=== PATIENT | female | born 1980 | race Caucasian/White ===

== ENCOUNTER → 2020-03-08 14:31 | Outpatient (BNVA) | payer OTHER, SELFPAY | PROVIDERS: PCP Internal Medicine Endocrinology, Diabetes & Metabolism; Referring Provider Internal Medicine Endocrinology, Diabetes & Metabolism; Visit Provider Advanced Practice Midwife | DX: Z76.89 Persons encountering health services in other specified circumstances (principal) ==

== ENCOUNTER 2020-07-13 15:17 | Outpatient (REF) | payer OTHER, SELFPAY ==
[2020-07-17 06:37] LABS: HPV mRNA E6/E7 rflx Not Detected (Not Detected)
== END 2020-07-13 15:18 | disposition home or self-care (01) ==
LOC: HO.LAB 15:17
PROVIDERS: PCP Internal Medicine Endocrinology, Diabetes & Metabolism; Visit Provider Advanced Practice Midwife
DX: Z01.419 Encounter for gynecological examination (general) (routine) without abnormal findings (principal); Z97.5 Presence of (intrauterine) contraceptive device
CPT/HCPCS: 36415; 87624; 88141; 88142

== ENCOUNTER 2020-08-23 15:18 | Outpatient (REF) | payer OTHER, SELFPAY ==
--- NOTE | ~2020-08-23 | MM_ITS ---
EXAMINATION: MM SCREENING DIGITAL BREAST TOMOSYNTHESIS, BILATERAL CLINICAL INFORMATION: Screening. Asymptomatic. No prior breast imaging. Age 40. No known family history breast cancer. The lifetime risk of breast cancer based on the Tyrer-Cuzick Model is 11%. COMPARISON: None (current study represents initial baseline exam). TECHNIQUE: Digital breast tomosynthesis is performed in both the craniocaudal and mediolateral oblique views along with computer-aided detection (CAD). Synthesized 2D images are generated from the tomosynthesis. FINDINGS: There are scattered areas of fibroglandular density (ACR BI-RADS breast composition Category b). There are no significant masses, abnormal calcifications, or other abnormalities. The skin contours are smooth. MM/MM tomosynthesis screening BI IMPRESSION: No mammographic evidence of malignancy. ASSESSMENT: BI-RADS 1: Negative RECOMMENDATION: Routine annual mammography screening. This patient's information was entered into a reminder system with a target due date for their next mammogram.
== END 2020-08-23 15:19 | disposition home or self-care (01) ==
LOC: HO.MAMMO 15:18
PROVIDERS: Visit Provider Advanced Practice Midwife
DX: Z12.31 Encounter for screening mammogram for malignant neoplasm of breast (principal)
CPT/HCPCS: 77063; 77067

== ENCOUNTER → 2021-08-30 15:19 | Outpatient (BNVA) | payer OTHER, SELFPAY | PROVIDERS: Visit Provider Advanced Practice Midwife | DX: Z13.89 Encounter for screening for other disorder (principal) ==

== ENCOUNTER 2021-09-14 15:18 | Outpatient (REF) | payer OTHER, SELFPAY ==
--- NOTE | ~2021-09-14 | MM_ITS ---
EXAMINATION: MM SCREENING DIGITAL BREAST TOMOSYNTHESIS, BILATERAL CLINICAL INFORMATION: Screening. Asymptomatic. The lifetime risk of breast cancer based on the Tyrer-Cuzick Model is 11%. COMPARISON: Mammography: August 23, 2020 TECHNIQUE: Digital breast tomosynthesis is performed in both the craniocaudal and mediolateral oblique views along with computer-aided detection (CAD). Synthesized 2D images are generated from the tomosynthesis. FINDINGS: There are scattered areas of fibroglandular density (ACR BI-RADS breast composition Category b). There are no significant masses, abnormal calcifications, or other abnormalities. MM/MM tomosynthesis screening BI IMPRESSION: There are no significant changes from prior study. ASSESSMENT: BI-RADS 1: Negative RECOMMENDATION: Routine annual mammography screening. This patient's information was entered into a reminder system with a target due date for their next mammogram.
== END 2021-09-14 15:19 | disposition home or self-care (01) ==
LOC: HO.MAMMO 15:18
PROVIDERS: Visit Provider Physician Assistant Medical
DX: Z12.31 Encounter for screening mammogram for malignant neoplasm of breast (principal)
CPT/HCPCS: 77063; 77067

== ENCOUNTER 2022-09-05 13:00 | Outpatient (REF) | payer BC, SELFPAY ==
[2022-09-09 01:09] LABS: HPV mRNA E6/E7 rflx Not Detected (Not Detected)
== END 2022-09-05 13:01 | disposition home or self-care (01) ==
LOC: HO.LNP 13:00
PROVIDERS: Visit Provider Advanced Practice Midwife
DX: Z01.419 Encounter for gynecological examination (general) (routine) without abnormal findings (principal)
CPT/HCPCS: 87624; 88142

== ENCOUNTER 2022-09-15 15:39 | Outpatient (REF) | payer BC, SELFPAY ==
--- NOTE | ~2022-09-15 | MM_ITS ---
EXAMINATION: MM SCREENING DIGITAL BREAST TOMOSYNTHESIS, BILATERAL CLINICAL INFORMATION: Screening. Asymptomatic. The lifetime risk of breast cancer based on the Tyrer-Cuzick Model is 10%. COMPARISON: Mammography: 09/14/2021, 08/23/2020 (baseline). TECHNIQUE: Digital breast tomosynthesis is performed in both the craniocaudal and mediolateral oblique views along with computer-aided detection (CAD). Synthesized 2D images are generated from the tomosynthesis. FINDINGS: There are scattered areas of fibroglandular density (ACR BI-RADS breast composition Category b). There are no significant masses, abnormal calcifications, or other abnormalities. Parenchymal pattern is similar to prior studies. There is no developing density or architectural abnormality. The axilla and skin contours are unremarkable. No significant changes. MM/MM tomosynthesis screening BI IMPRESSION: No mammographic evidence of malignancy. ASSESSMENT: BI-RADS 1: Negative RECOMMENDATION: Routine annual mammography screening. This patient's information was entered into a reminder system with a target due date for their next mammogram.
== END 2022-09-15 15:40 | disposition home or self-care (01) ==
LOC: HO.MAMMO 15:39
PROVIDERS: PCP Physician Assistant Medical; Visit Provider Physician Assistant Medical
DX: Z12.31 Encounter for screening mammogram for malignant neoplasm of breast (principal)
CPT/HCPCS: 77063; 77067

== ENCOUNTER 2023-09-19 15:40 | Outpatient (REF) | payer BC, SELFPAY ==
--- NOTE | ~2023-09-19 | MM_ITS ---
EXAMINATION: MM SCREENING DIGITAL BREAST TOMOSYNTHESIS, BILATERAL CLINICAL INFORMATION: Screening. Asymptomatic. COMPARISON: Mammography: 09/07/2022, 09/14/2021, 08/23/2020 (baseline). TECHNIQUE: Digital breast tomosynthesis is performed in both the craniocaudal and mediolateral oblique views along with computer-aided detection (CAD). Synthesized 2D images are generated from the tomosynthesis. FINDINGS: There are scattered areas of fibroglandular density (ACR BI-RADS breast composition Category b). There are no suspicious masses, suspicious grouped calcifications, or areas of architectural distortion in either breast. The parenchymal pattern is stable from prior exams. No skin or axillary abnormality. MM/MM tomosynthesis screening BI IMPRESSION: No mammographic evidence of malignancy. ASSESSMENT: BI-RADS BI-RADS 1 - Negative RECOMMENDATION: Routine annual mammography screening. 1 year F/U This examination should not preclude the clinical evaluation of a suspicious palpable abnormality. This patient's information was entered into a reminder system with a target due date for their next mammogram.
== END 2023-09-19 15:41 | disposition home or self-care (01) ==
LOC: HO.MAMMO 15:40
PROVIDERS: PCP Physician Assistant Medical; Visit Provider Physician Assistant Medical
DX: Z12.31 Encounter for screening mammogram for malignant neoplasm of breast (principal)
CPT/HCPCS: 77063; 77067

== ENCOUNTER → 2023-09-19 16:00 | Outpatient (BNV) | payer BC, SELFPAY | PROVIDERS: PCP Physician Assistant Medical; Visit Provider Radiology Diagnostic Radiology | DX: Z12.31 Encounter for screening mammogram for malignant neoplasm of breast (principal) | CPT/HCPCS: 77063; 77067 ==

== ENCOUNTER 2023-11-09 11:16 | Outpatient (REF) | payer BC, SELFPAY ==
[2023-11-13 10:44] LABS: HPV mRNA E6/E7 Not Detected (Not Detected)
== END 2023-11-09 11:17 | disposition home or self-care (01) ==
LOC: HO.LNP 11:16
PROVIDERS: PCP Physician Assistant Medical; Visit Provider Advanced Practice Midwife
DX: Z01.419 Encounter for gynecological examination (general) (routine) without abnormal findings (principal); Z11.51 Encounter for screening for human papillomavirus (HPV)
CPT/HCPCS: 87624; 88175

== ENCOUNTER 2023-11-09 11:16 | Outpatient (AMB) | payer BC, SELFPAY ==
--- NOTE | 2023-11-09 11:18 | A.OFFVIS_ITS ---
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 Doing well with no concerns. She tries to eat healthy and stays active with exercise. Mirena IUD user. Currently is sexually active. She denies vaginal itching and irritation. STI screening offered; she declined. Denies family history of breast, ovarian or colon cancer. Last pap smear -ASCUS negative HPV. Mammogram: 2023. 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 Sexually active: Yes Sexual orientation: Straight/Heterosexual Gender identity: Female Female Reproductive History Menstrual Age of Menarche: 12 control method: progestin IUCD Total pregnancies: 3 Full term: 3 Number of Living Children: 3 Date of last pap smear: 09/06/22 Date of Mammogram: 09/19/23 Review of Systems Const All systems reviewed & are unremarkable except as noted in HPI and below Reports as per HPI Eyes Reports no additional complaints ENT Reports no additional complaints Card Reports no additional complaints Resp Reports no additional complaints GI Reports as per HPI and Reports no additional complaints Reports as per HPI Musc Reports no additional complaints Skin/Breast Reports as per HPI Neuro Reports no additional complaints Psych Reports no additional complaints Endo Reports no additional complaints Alberto/Lymph Reports no additional complaints Aller/Immun Reports no additional complaints Physical Exam Vital Signs: Last Vital Signs BP 126/70 11/09/23 11:20 BMI result Body Mass Index 35.6 Const General: cooperative, healthy appearing, no acute distress, well developed and alert Orientation/consciousness: patient oriented x3 HEENT Head: Yes normal to inspection Eyes General: appearance normal, both eyes and all related structures Neck Neck: Yes normal visual inspection Thyroid: Thyroid normal Chest Chest palpation & inspection: normal inspection of the chest and other (no puckering, dimpling, peau de orange, retraction, discharge, masses) Breast/axilla inspection: normal inspection of the breasts Breast/axilla palpation: normal palpation of the breasts Resp Effort & Inspection: normal respiratory effort GI Inspection: Yes normal to inspection Palpation (GI): Soft to palpation Rectal Exam - Female: deferred General: Yes bladder normal to palpation External Female Exam: normal external appearance and normal appearance of the urethra Speculum Exam - Vagina: normal appearance of the vagina, normal palpation and normal vaginal discharge Speculum Exam - Cervix: normal appearance of the cervix, normal palpation and Other cervical findings present (IUD strings present at os, bled slightly with Pap) Bimanual exam- vagina & uterus: normal bimanual exam, normal palpation, uterine size normal, bladder normal to palpation, normal palpation and non-tender Bimanual Exam- Adnexa, other: no masses Skin General skin exam: no rashes or lesions noted Rashes: no rashes Neuro General: patient oriented x3 Cognition (Neuro): normal cognition Extrem General: Yes normal to inspection Psych Attitude: cooperative Thought process: Normal thought process present Assessment & Plan Assessment & Plan (1) Encounter for well woman exam with routine gynecological exam: Code(s): Z01.419 - Encounter for gynecological examination (general) (routine) without abnormal findings Category: Medical (2) History of abnormal cervical Pap smear: Code(s): Z87.42 - Personal history of other diseases of the female genital tract Plan Discussed: Current recommendations for pap smears per ASCCP guidelines. Breast awareness and periodic breast exams. Maintain a healthy lifestyle including a well balanced diet and routine exercise. Mammogram yearly. Colonoscopy >45, or at risk sooner. Patient verbalizes understanding and agrees to the plan of care. She was given opportunity to ask questions and all questions were answered to the best of my ability. RTO in one year for annual associate pastor examination. This note is constructed using voice recognition software. While every effort has been made to ensure accuracy, front desk agent errors may have been included. Coding Level of Care Code Est Pt Prev Care 40-64y(96572) Diagnoses Encounter for well woman exam with routine gynecological exam Z01.419 History of abnormal cervical Pap smear Z87.42
[2023-11-09 11:20] VITALS: BP 126/70; BMI 35.6
== END 2023-11-09 11:49 | disposition home or self-care (01) ==
PROVIDERS: PCP Physician Assistant Medical; Visit Provider Advanced Practice Midwife
DX: Z01.419 Encounter for gynecological examination (general) (routine) without abnormal findings (principal); Z87.42 Personal history of other diseases of the female genital tract
CPT/HCPCS: 99396

== ENCOUNTER 2023-12-17 15:22 | Emergency (ER) | payer BC, SELFPAY ==
--- NOTE | ~2023-12-17 | XR_ITS ---
EXAMINATION: PORTABLE CHEST 1 VIEW CLINICAL INFORMATION: CP. COMPARISON: No recent pertinent prior studies are available for comparison. TECHNIQUE: Portable frontal view of the chest was obtained. FINDINGS: The lungs are well expanded. No focal infiltrate, effusion, edema, or pneumothorax. Cardiac and mediastinal silhouettes are within normal limits for technique. No acute bony abnormality seen. XR/XR chest 1V IMPRESSION: No evidence of acute disease.
[2023-12-17 15:35] VITALS: BP 123/77; BP 138/78; PULSE 71; PULSE 78; RESP 20; TEMP 37.2; O2SAT 97; BMI 36.0
--- NOTE | 2023-12-17 15:35 | ECG_ITS ---
Test Reason : cp Blood Pressure : / mmHG Vent. Rate : 074 BPM Atrial Rate : 074 BPM P-R Int : 132 ms QRS Dur : 082 ms QT Int : 398 ms P-R-T Axes : 023 056 033 degrees QTc Int : 441 ms Normal sinus rhythm Normal ECG No previous ECGs available Referred By: Generic ED Physician Electronically Signed By:Wes Campos
--- NOTE | 2023-12-17 15:54 | ED.CHESTPAIN ---
HPI - Chest Pain General Chief Complaint: Chest Pain Stated Complaint: CP Time Seen by Provider: 12/17/23 15:45 Source: patient and EMS Mode of arrival: EMS Limitations: no limitations History of Present Illness ED Provider: DR. Lai HPI narrative: 43-year-old female who is otherwise healthy brought in by ambulance for evaluation of left-sided chest pain that started since 09:00, pain feels like pressure on the left side of the chest and upper left back, radiates to the left on, pain is constant since it started waxes and wanes with no clear factors to aggravate or relief it. No other associated symptoms no nausea, no vomiting, no SOB, no weakness, no numbness. No recent travel, no prolonged immobilization, no lower extremity swelling or tenderness, no history of contraceptive pills or hormonal therapy, no history of PE or DVT. No history of smoking cigarettes or drug abuse, drinks alcohol occasionally. Related Data Home Medications ?Medication ?Instructions ?Recorded ?Confirmed bupropion HCl 150 mg tablet,12 hr mg PO 03/08/20 sustained-release cetirizine 10 mg tablet (Zyrtec) 10 mg PO DAILY 03/08/20 escitalopram oxalate 20 mg tablet 20 mg PO DAILY 03/08/20 levonorgestrel 21 mcg/24 hr (up to 0 device vaginal ONCE 03/08/20 8 years) 52 mg intrauterine device Allergies Allergy/AdvReac Type Severity Reaction Status Date / Time No Known Allergies Allergy Verified 12/17/23 15:37 [No Known Allergies*] Review of Systems Review of Systems: All other systems are reviewed and are negative Constitutional: Reports as per HPI and Reports no additional constitutional complaints Eyes: Reports as per HPI and Reports no additional eye complaints Reports system reviewed and no additional complaints, except as documented Cardiovascular: Reports as per HPI and Reports no additional cardiovascular complaints Respiratory: Reports as per HPI and Reports no additional respiratory complaints Gastrointestinal: Reports as per HPI and Reports no additional gastrointestinal complaints Genitourinary: Reports no additional female genitourinary complaints Musculoskeletal: Reports no additional musculoskeletal complaints Skin/Breast: Reports system reviewed and no additional complaints, except as docu Psychiatric: Reports no additional psychiatric complaints Endocrine: Reports no additional endocrine complaints Hematologic/Lymphatic: Reports no additional hematologic/lymphatic complaints Allergic/Immunologic: Reports no additional allergic/immunologic complaints Reports system reviewed and no additional complaints, except as documented and Reports Abnormal speech present [facility] Past Medical History Medical History Hx of abnormal cervical Pap smear Irritability Surgical History Hx of cholecystectomy Social History Social History Household Members: Spouse and Children Housing: House Alcohol intake: current Alcohol intake frequency: a few times a week Patient Tobacco Use Status: Never used Tobacco Advance Directives: No Advance Directives Information Provided: No Do you have a plan to hurt others: No Plan Current occupational status: employed 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 Blood pressure elevated. Heart rate normal. Respiratory rate normal. Temperature normal. Oxygen saturation normal. Appearance: Alert. Oriented X3. No acute distress. Head: Normal external exam. Normocephalic. Atraumatic. No South signs noted. No raccoon eyes noted Eyes: PERRLA. EOMI. Conjunctiva and sclera normal. Eyelids normal. ENT: TM's Normal. Pharynx normal. Uvula midline. Moist mucous membranes. No trismus noted. No drooling noted. No muffled voice noted. Neck: Normal inspection. Neck supple. FROM. No adenopathy. Thyroid Normal. No meningeal signs. No neck mass noted. CVS: Normal heart rate and rhythm. Heart sound normal. No murmurs noted. Pulses normal throughout. Respiratory: No respiratory distress. Painless inspiration. Breath sounds normal. No wheezes/rales/rhonchi noted. Chest nontender. No accessory muscle usage noted or decreased air movement noted. Abdomen: Soft and nontender. Bowel sounds normal in all 4 quadrants. No distention noted. No organomegaly noted. No visible injury noted. Back: No CVA tenderness. Full range of motion noted. Skin: Skin warm and dry. Normal skin color. Normal skin turgor. No rashes/lesions/lacerations noted. Extremities: No lower extremity edema. Extremities exhibit normal range of motion. Extremities nontender. Neuro: Oriented X 3. Cranial nerve exam: II-XII are grossly intact No motor deficit. No sensory deficit. Reflexes normal. Course Reevaluation(s) Reevaluation #1: 43-year-old female otherwise healthy presented with atypical left-sided chest pain. patient presentation is not consistent with ACS with negative to troponin and unremarkable EKG. Patient also has no risk for pulmonary embolism with a negative D-dimer. Negative chest x-ray for acute intrathoracic pathology. Time: 19:00 Medications Administered Discontinued Medications Generic Name Dose Route Start Last Admin Trade Name Freq PRN Reason Stop Dose Admin Acetaminophen 650 mg 12/17/23 15:58 12/17/23 16:02 Acetaminophen 325 Mg Tablet PO 12/17/23 15:59 650 mg ONCE ONE Administration Medical Decision Making Differential Diagnosis Differential Diagnoses: The differential diagnosis associated with the presentation includes ( ACS, pulmonary embolism, pneumonia, pneumothorax, pleural effusion, electrolyte derangement, severe anemia, chest wall muscular pain, costochondritis.) Admission/Observation Consideration of admission/observation: Escalation of care including admission/observation considered Lab Data MDM Lab Attestation statement: I reviewed the patient's lab results. 12/17/23 16:07 12/17/23 16:07 Labs: Lab Results 12/17/23 Range/Units 16:07 WBC 8.9 (4.8-10.8) X10*3/uL RBC 3.69 L (4.20-5.50) X10*6/uL Hgb 11.4 L (12.0-16.0) g/dl Hct 32.6 L (37.0-47.0) % MCV 88.3 (80.0-98.0) fL MCH 30.9 (27.0-33.0) pg MCHC 35.0 (31.0-35.0) g/dl RDW 14.1 (11.0-16.0) % Plt Count 192 (160-400) X10*3/uL MPV 9.1 L (9.4-12.3) fL Immature Gran % (Auto) 0.6 H (0.0-0.4) % Neut % (Auto) 63.2 (45-73) % Lymph % (Auto) 24.4 (20-40) % [place] % (Auto) 7.6 (2-11) % Eos % (Auto) 3.5 (0-4) % Baso % (Auto) 0.7 (0-2) % Lymph # (Auto) 2.2 (1.2-4.9) X10*3/uL [place] # (Auto) 0.7 (0.1-1.2) X10*3/uL Eos # (Auto) 0.3 (0.0-0.4) X10*3/uL Baso # (Auto) 0.1 (0.0-0.2) X10*3/uL Abs Immat Gran (auto) 0.05 H (0.00-0.03) X10*3/uL Absolute Neuts (auto) 5.7 (2.0-8.3) x10*3/uL Absolute Nucleated RBC 0.000 (0.0-0.012) X10*3/uL Nucleated RBC % (auto) 0.0 (0.0-0.2) /100WBC D-Dimer High Sensitivty 166 NG/ML Sodium 139 (135-145) mmol/L Potassium 3.7 (3.3-5.1) mmol/L Chloride 106 (96-108) mmol/L Carbon Dioxide 25 (22-29) mmol/L Anion Gap 12 (12-20) BUN 11 (9-16) mg/dL Creatinine 1.05 (0.5-1.4) mg/dL Estim Creat Clear Calc 82.9 Estimated GFR 57 Random Glucose 90 (60-115) mg/dL Calcium 9.2 (8.4-10.2) mg/dL Magnesium 2.0 (1.6-2.6) mg/dL Total Bilirubin 0.3 (0.0-1.0) mg/dL AST 28 (5-31) U/L ALT 54 H (0-31) U/L Alkaline Phosphatase 38 L (39-117) U/L Troponin I High Sens < 2.7 (<3.5-17.0) ng/L Total Protein 7.1 (6.5-8.0) g/dL Albumin 4.1 (3.5-5.0) g/dL Independent Interpretation I performed an independent interpretation of an: EKG ( normal sinus rhythm at 74 beats per minutes, normal intervals, normal axis deviation, no ST-T changes, no old EKG to compare.) and Plain X-Ray ( Chest: No acute intrathoracic pathology.) Radiology Impression Discussion of test interpretation with radiology: I have reviewed the radiologist's reading. Discharge Plan Discharge Clinical Impression: Atypical chest pain Patient Disposition: Home, Self-Care Instructions: Chest Pain (ED) Prescriptions: No Action escitalopram oxalate 20 mg tablet 20 mg PO DAILY bupropion HCl 150 mg tablet sustained-release 12 hr PO Mirena 20 mcg/24 hours (5 yrs) 52 mg intrauterine device 0 device vaginal ONCE cetirizine [Zyrtec] 10 mg tablet 10 mg PO DAILY Referrals: Wes Campos MD [Physician] - Anderson Noble PA [Primary Care Provider] - Print Language: [place] Islander
[2023-12-17] MEDS: Acetaminophen 325 MG TABLET 650 MG PO (16:02)
[2023-12-17 16:13] LABS: MANUAL DIFF FLAG NO
[2023-12-17 16:14] LABS: Basophils Absolute Auto 0.1 X10*3/uL (0.0-0.2); Basophils Percent Auto 0.7 % (0-2); Eosinophils Absolute Auto 0.3 X10*3/uL (0.0-0.4); Eosinophils Percent Auto 3.5 % (0-4); Hematocrit 32.6 % (37.0-47.0); Hemoglobin 11.4 g/dl (12.0-16.0); Imm Gran Abs Auto 0.05 X10*3/uL (0.00-0.03); Imm Gran Pct Auto 0.6 % (0.0-0.4); Lymphocytes Absolute Auto 2.2 X10*3/uL (1.2-4.9); Lymphocytes Percent Auto 24.4 % (20-40); Mean Corpuscular Hemoglobin 30.9 pg (27.0-33.0); Mean Corpuscular Volume 88.3 fL (80.0-98.0); Mean Platelet Volume 9.1 fL (9.4-12.3); Monocytes Absolute Auto 0.7 X10*3/uL (0.1-1.2); Monocytes Percent Auto 7.6 % (2-11); Neutrophils Absolute Auto 5.7 x10*3/uL (2.0-8.3); Neutrophils Percent Auto 63.2 % (45-73); Platelet Count 192 X10*3/uL (160-400); Red Blood Count 3.69 X10*6/uL (4.20-5.50); Red Cell Distribution Width 14.1 % (11.0-16.0); White Blood Count 8.9 X10*3/uL (4.8-10.8)
[2023-12-17 16:23] LABS: D Dimer High Sensitivity 166 NG/ML
[2023-12-17 16:29] LABS: Alanine Aminotransferase 54 U/L (0-31); Albumin Level 4.1 g/dL (3.5-5.0); Alkaline Phosphatase 38 U/L (39-117); Anion Gap 12 (12-20); Aspartate Amino Transferase 28 U/L (5-31); Bilirubin Total 0.3 mg/dL (0.0-1.0); Blood Urea Nitrogen 11 mg/dL (9-16); Calcium 9.2 mg/dL (8.4-10.2); Carbon Dioxide 25 mmol/L (22-29); Chloride 106 mmol/L (96-108); Creatinine Clr Calc Pharmacy 82.9; Estimated Glomerular Filt Rate 57; Glucose Random 90 mg/dL (60-115); Potassium 3.7 mmol/L (3.3-5.1); Sodium 139 mmol/L (135-145); Total Protein 7.1 g/dL (6.5-8.0)
[2023-12-17 16:36] LABS: Troponin-I High Sensitivity < 2.7 ng/L (<3.5-17.0)
[2023-12-17 18:42] VITALS: BP 121/77; PULSE 75; RESP 14; O2SAT 96
[2023-12-17 19:41] LABS: Troponin-I High Sensitivity < 2.7 ng/L (<3.5-17.0)
[2023-12-17 20:53] VITALS: BP 121/77; PULSE 75; RESP 14; TEMP 37.2; O2SAT 96
== END 2023-12-17 21:02 | disposition home or self-care (01) ==
PROVIDERS: Emergency Provider Emergency Medicine; PCP Physician Assistant Medical
DX: R07.89 Other chest pain (principal); Z79.899 Other long term (current) drug therapy
CPT/HCPCS: 36415; 71045; 80053; 83735; 84484; 85025; 85379; 93005; 99283; 99285

== ENCOUNTER → 2023-12-17 15:35 | Outpatient (BNV) | payer BC, SELFPAY | PROVIDERS: Emergency Provider Emergency Medicine; PCP Physician Assistant Medical; Visit Provider Internal Medicine Cardiovascular Disease | DX: R07.9 Chest pain, unspecified (principal) | CPT/HCPCS: 93010 ==

== ENCOUNTER 2024-09-25 15:32 | Outpatient (REF) | payer BC, SELFPAY ==
--- OUTSIDE RECORDS SUMMARY | 2024-09-25 16:03 | XMS_ITS | Clinical Summary ---
Author Organization [facility] Address [address] [place] [id number] Phone Care Team Providers Care Radiological Health Specialist Name Role Phone Anderson Noble Primary Care Provider [phone] Medications buPROPion XL (WELLBUTRIN XL) 300 mg 24 hr tablet TAKE 1 TABLET BY MOUTH EVERY DAY IN THE MORNING 90 tablet 1 07/28/2024 Active Encounters Date Type Department Care Team Description 09/03/2024 Telephone Adult Medicine [address] [phone] Anderson Noble PA Sore Throat 07/24/2024 Telephone Adult Medicine [address] [phone] Makenna Trimble MA Referral from Last 3 Months Surgical History Surgery Date Site/Laterality Comments CHOLECYSTECTOMY 04/09/13 PROCEDURE: LAPAROSCOPIC CHOLECYSTECT COLONOSCOPY 11/23/2005 PROCEDURE: HISTORICAL COLONOSCOPY; COMMENT: Dr Muñoz - normal to terminal ileum Medical History Medical History Date Comments Allergic rhinitis, cause unspecified 11/03/2005 DX:Allergic rhinitis, cause unspecified IBS (irritable bowel syndrome) D X:IBS (irritable bowel syndrome) Family History Medical History Relation Name Comments Diabetes Father htn Stroke Father age 50, htn and diabetes Asthma Mother depression Other: blood cancer Mother's side uncle a ge 44 Breast cancer Neg Hx Colon cancer Neg Hx Ovarian cancer Neg Hx Relation Name Status Comments Father Alive Mother Alive Mother's side Social History Tobacco Use Types Packs/Day Years Used Date Smoking Tobacco: Never Smokeless Tobacco: Never Alcohol Use Standard Drinks/Week Comments No 0 (1 standard drink = 0.6 oz pur e alcohol) Comments Unknown Sex and Gender Information Value Date Recorded Sex Assigned at Not on file Legal Sex Female 10:45 AM EST Gender Identity Not on file Sexual Orientation Not on file Obstetrics History Last Filed Vital Signs Vital Sign Reading Time Taken Comments Blood Pressure 130/60 11/26/2023 9:38 AM EDT Pulse 75 11/26/2023 9:38 AM EDT Temperature - - Respiratory Rate - - Oxygen Saturation - - Inhaled Oxygen Concentration - - Weight 99.3 kg (219 lb) 02/12/2024 3:28 PM EDT Height 165.1 cm (5' 5 ) 02/12/2024 3:28 PM EDT Body Mass Index 36.44 02/12/2024 3:28 PM EDT Plan of Treatment Health Maintenance Due Date Last Done Comments Pneumococcal Vaccine: Pediatrics (0 to 5 Years) and At-Risk Patients (6 to 64 Years) (1 of 2 - PCV) 1999 Cervical Cancer Screening: Pap Smear 2001 COVID-19 Vaccine (3 - Moderna risk series) 10/02/2020 09/04/2020, 08/07/2020 Depression Screening 04/29/2022 HIV Screening 04/29/2022 Hepatitis C Screening 04/29/2022 Social Influencers of Health Screening 04/29/2022 Influenza Vaccine (Season Ended) 2025 03/11/2021, 01/30/2018, 01/31/2017, Additional history exists Breast Cancer Screening 09/18/2025 09/19/2023 DTaP,Tdap,and Td Vaccines (2 - Td or Tdap) 03/07/2028 03/07/2018 Cholesterol Screening (Lipid Panel) 07/16/2029 07/16/2024 Hepatitis B Vaccines Completed 04/01/2003, 11/04/2002, 10/02/2002, Additional history exists HIB Vaccines Aged Out No longer eligi ble based on patient's age to complete this topic HPV Vaccines Aged Out No longer eligi ble based on patient's age to complete this topic Hepatitis A Vaccines Aged Out No long er eligible based on patient's age to complete this topic IPV Vaccines Aged Out No longer eligi ble based on patient's age to complete this topic MMR Vaccines Aged Out No longer eligi ble based on patient's age to complete this topic Meningococcal ACWY Vaccine Aged Out N o longer eligible based on patient's age to complete this topic Meningococcal B Vaccine Aged Out No l onger eligible based on patient's age to complete this topic RSV Immunization Patients Under 20 months Aged Out No longer eligible based on patient's age to complete this topic Varicella Vaccines Aged Out No longer eligible based on patient's age to complete this topic Procedures Procedure Name Priority Date/Time Associated Diagnosis Comments GLIADIN ANTIBODIES, SERUM Routine 2024 9:02 AM EST Exogenous obesity Irritable bowel syndrome with constipation Fatigue ENDOMYSIAL ANTIBODY, IGA Routine 025 9:02 AM EST Exogenous obesity Irritable bowel syndrome with constipation Fatigue TISSUE TRANSGLUTAMINASE, IGA Routine 07/16/2024 9:02 AM EST Exogenous obesity Irritable bowel syndrome with constipation Fatigue IMMUNOGLOBULIN IGA Routine 07/16/2024 9: 02 AM EST Exogenous obesity Irritable bowel syndrome with constipation Fatigue LUTEINIZING HORMONE Routine 07/16/2024 9 :02 AM EST Exogenous obesity Irritable bowel syndrome with constipation Fatigue FOLLICLE STIMULATING HORMONE Routine 07/16/2024 9:02 AM EST Exogenous obesity Irritable bowel syndrome with constipation Fatigue COMPREHENSIVE METABOLIC PANEL Routine 07/16/2024 9:02 AM EST Exogenous obesity Irritable bowel syndrome with constipation Fatigue LIPID PANEL WITH REFLEX TO DIRECT LDL Routine 07/16/2024 9:02 AM EST Exogenous obesity Irritable bowel syndrome with constipation Fatigue THYROID STIMULATING HORMONE WITH REFLEX TO FREE T4 AND FREE T3 Routine 07/16/2024 9:02 AM EST Exogenous obesity Irritable bowel syndrome with constipation Fatigue COMPLETE BLOOD COUNT Routine 07/16/2024 9:02 AM EST Exogenous obesity Irritable bowel syndrome with constipation Fatigue INSULIN, TOTAL Routine 07/16/2024 9:02 AM EST Exogenous obesity Irritable bowel syndrome with constipation Fatigue HOMOCYSTEINE, SERUM Routine 07/16/2024 9 :02 AM EST Exogenous obesity Irritable bowel syndrome with constipation Fatigue IMMUNOGLOBULIN IGA Routine 07/16/2024 9: 02 AM EST Exogenous obesity Irritable bowel syndrome with constipation Fatigue ESTRADIOL Routine 07/16/2024 9:02 AM EST Exogenous obesity Irritable bowel syndrome with constipation Fatigue PROGESTERONE Routine 07/16/2024 9:02 AM EST Exogenous obesity Irritable bowel syndrome with constipation Fatigue VITAMIN D 25 HYDROXY Routine 07/16/2024 9:02 AM EST Exogenous obesity Irritable bowel syndrome with constipation Fatigue TESTOSTERONE FREE, BIOAVAILABLE AND TOTAL Routine 07/16/2024 9:02 AM EST Exogenous obesity Irritable bowel syndrome with constipation Fatigue DIHYDROTESTOSTERONE Routine 07/16/2024 9 :02 AM EST Exogenous obesity Irritable bowel syndrome with constipation Fatigue HM MAMMOGRAPHY Routine 09/19/2023 from Last 3 Months or Most Recently Relevant to Health Maintenance Results * Thyroid stimulating hormone with reflex to free t4 and free t3 (07/16/2024 9:02 AM EST) TSH 2.24 0.40 - 4.00 mcIU/mL LAB CHEMISTRY METHOD 07/16/2024 1:05 PM EST [facility] Blood Venous blood specimen / Unknown Venipuncture / Unknown 07/16/2024 9:02 AM EST 07/16/2024 9:02 AM EST us Donell VITALE LAB BLOOD ORDERABLES Fin al Result [facility] [address] [place] [address], [place] [phone] * (ABNORMAL) Lipid panel with reflex to direct LDL (07/16/2024 9:02 AM EST) Cholesterol 206(H) 0 - 200 mg/dL LAB CHEMISTRY METHOD 07/16/2024 1:32 PM EST [facility] Triglycerides 226(H) 0 - 150 mg/dL LAB CHEMISTRY METHOD 07/16/2024 1:32 PM EST [facility] HDL 43 >=40 mg/dL LAB CHEMISTRY METHOD 07/16/2024 1:32 PM [facility] LDL Calculated 118(H) 0 - 100 mg/dL LAB CHEMISTRY METHOD 07/16/2024 1:32 PM [facility] VLDL Cholesterol [place] 45.2 mg/dL LAB CHEMISTRY METHOD 07/16/2024 1:32 PM [facility] Non HDL Chol. (LDL+VLDL) 163(H) <145 mg/dL LAB CHEMISTRY METHOD 07/16/2024 1:32 PM [facility] Chol/HDL Ratio 4.8(H) 0.0 - 4.4 LAB CHEMISTRY METHOD 07/16/2024 1:32 PM [facility] Blood Venous blood specimen / Unknown Venipuncture / Unknown 07/16/2024 9:02 AM EST 07/16/2024 9:02 AM EST us Donell VITALE LAB BLOOD ORDERABLES Fin al Result [facility] [address] [place] [address], [place] [phone] * (ABNORMAL) Testosterone free, bioavailable and total (07/16/2024 9:02 AM EST) Testosterone 31 9 - 48 ng/dL LAB CHEMISTRY METHOD 07/16/2024 1:04 PM [facility] Testosterone, Free 0.7(H) 0.0 - 0.5 ng/dL LAB CHEMISTRY METHOD 07/16/2024 1:04 PM [facility] Testosterone, Bioavailable 17(H) 1 - 9 ng/dL LAB CHEMISTRY METHOD 07/16/2024 1:04 PM [facility] Sex Hormone Binding 19.6 See Comment nmol/L LAB CHEMISTRY METHOD 07/16/2024 1:04 PM [facility] Comment: FEMALES: ??pre-menopausal ?? 10.8 - >180 ??post-menopausal ??23.2 - 159.1 MALES: ?? 21-49 years ? 14.6 - 94.6 ?? 50-89 years ? 21.6 - 113.1 CHILDREN: ??No established reference range Over the counter supplements containing high doses of biotin may interfere with this assay. ??If interference is suspected, patients should be retested after refraining from biotin supplements for 72 hours. Albumin 4.4 3.2 - 5.0 g/dL LAB CHEMISTRY METHOD 07/16/2024 1:04 PM [facility] Blood Venous blood specimen / Unknown Venipuncture / Unknown 07/16/2024 9:02 AM EST 07/16/2024 9:02 AM EST Donell [facility] LAB BLOOD ORDERABLES Fin al Result [facility] [address] [place] [address], * Endomysial antibody, IgA (07/16/2024 9:02 AM EST) Endomysial IgA Negative Negative 07/17/2024 10:10 AM [facility] Blood Venous blood specimen / Unknown Venipuncture / Unknown 07/16/2024 9:02 AM EST 07/16/2024 9:02 AM EST Donell [facility] LAB BLOOD ORDERABLES Fin al Result Performing Organization Address [facility]/ZIP Co de Phone Number [facility] [address] [place] [address], * Insulin, total (07/16/2024 9:02 AM EST) Pathologist [facility] Insulin 23.6 3.0 - 25.0 mcIU/mL LAB CHEMISTRY METHOD 07/16/2024 1:04 PM EST [facility] Blood Venous blood specimen / Unknown Venipuncture / Unknown 07/16/2024 9:02 AM EST 07/16/2024 9:02 AM EST Narrative [facility] - 07/16/2024 1:04 PM EST Insulin reference range based on fasting status. ??Insulin values vary in non- fasting individuals. Donell [facility] LAB BLOOD ORDERABLES Fin al Result Performing Organization Address [facility]/ZIP Co de Phone Number [facility] [address] [place] [address], [place] [phone] * Gliadin antibodies, serum (07/16/2024 9:02 AM EST) [facility] Gliadin IgA 7 <20 units LAB CHEMISTRY METHOD 07/23/2024 11:41 AM EST [facility] Gliadin IgG 3 <20 units LAB CHEMISTRY METHOD 07/23/2024 11:41 AM EST [facility] Gliadin IgA Antibody Negative Negative LAB CHEMISTRY METHOD 07/23/2024 11:41 AM EST [facility] Gliadin IgG Antibody Negative Negative LAB CHEMISTRY METHOD 07/23/2024 11:41 AM EST [facility] Blood Venous blood specimen / Unknown Venipuncture / Unknown 07/16/2024 9:02 AM EST 07/16/2024 9:02 AM EST us Donell VITALE LAB BLOOD ORDERABLES Fin al Result Performing Organization Address [facility]/ZIP Co de Phone Number [facility] [address] [place] [address], [place] [phone] * Tissue transglutaminase, IgA (07/16/2024 9:02 AM EST) Pathologist [facility] Tissue Transglutaminase Ab, IgA Quant 1 <4 unit/mL LAB CHEMISTRY METHOD 07/23/2024 11:43 AM EST [facility] Tissue Transglutaminase Ab, IgA Negative Negative LAB CHEMISTRY METHOD 07/23/2024 11:43 AM EST [facility] Blood Venous blood specimen / Unknown Venipuncture / Unknown 07/16/2024 9:02 AM EST 07/16/2024 9:02 AM [facility] [place] [facility] Fin al Result Performing Organization Address [facility] de Phone Number [facility] [address] [place] [address], [place] [phone] * Dihydrotestosterone (07/16/2024 9:02 AM EST) [facility] Dihydrotestosterone 5 < OR = 20 ng/dL 07/22/2024 4:38 AM EST [facility] Comment: This test was developed and its analytical performance characteristics have been determined by [facility]. It has not been cleared or approved by FDA. This assay has been validated pursuant to the CLIA regulations and is used for clinical purposes. Test Performed at: [facility] [id number] [place] [address] ??[phone] ? I Easton COLON, PhD, ANTONIO Blood Venous blood specimen / Unknown Venipuncture / Unknown 07/16/2024 9:02 AM EST 07/16/2024 9:02 AM EST [facility] [employer] [place] LAB BLOOD ORDERABLES Fin al Result Performing Organization Address [facility]/ZIP Co de Phone Number [facility] [address] [place] [address] * (ABNORMAL) Vitamin D 25 hydroxy (07/16/2024 9:02 AM EST) Vit D, 25-Hydroxy 10.0(L) 30.0 - 80.0 ng/mL LAB CHEMISTRY METHOD 07/16/2024 1:04 PM EST [facility] Blood Venous blood specimen / Unknown Venipuncture / Unknown 07/16/2024 9:02 AM EST 07/16/2024 9:02 AM EST Donell [facility] LAB BLOOD ORDERABLES Fin al Result Performing Organization Address [facility] Co de Phone Number [facility] [address] [place] [address], * Progesterone (07/16/2024 9:02 AM EST) Pathologist [facility] Progesterone 1.5 ng/mL LAB CHEMISTRY METHOD 07/16/2024 1:32 PM EST [facility] Comment: PROGESTERONE REFERENCE RANGES (NG/ML) FEMALES NORMALLY MENSTRUATING: FOLLICULAR PHASE 0.2 - ??1.7 MIDCYCLE PEAK ?2.3 - ??242 LUTEAL PHASE ? 8.8 - 21.6 POSTMENOPAUSAL ?<0.2 - ??0.9 : FIRST TRIMESTER ??11.4 - 41.0 SECOND TRIMESTER 13.5 - ??156 THIRD TRIMESTER ??51.4 - >200 This assay should not be used in patients taking DHEA supplements as part of IVF treatment. ??A metabolite (DHEA-S) of this supplement has been shown to cross- react with the progesterone assay and cause falsely elevated results. Blood Venous blood specimen / Unknown Venipuncture / Unknown 07/16/2024 9:02 AM EST 07/16/2024 9:02 AM EST Don[facility] LAB BLOOD ORDERABLES Fin al Result Performing Organization Address [facility]/ZIP Co de Phone Number [facility] [address] [place] [address], * Estradiol (07/16/2024 9:02 AM EST) Pathologist [facility] Estradiol 99 See below pcg/mL LAB CHEMISTRY METHOD 07/16/2024 1:32 PM EST [facility] Comment: ESTRADIOL REFERENCE RANGES (PG/ML) FEMALES NORMALLY MENSTRUATING: FOLLICULAR PHASE 21.4 - 164.8 MIDCYCLE PEAK ?49.9 - 367.2 LUTEAL PHASE ? 40.2 - 259.0 POSTMENOPAUSAL: ON HRT ?<11 - 462.1 UNTREATED ? <11 - ??58.3 Fulvestrant has been shown to cross-react with the estradiol assay and cause falsely elevated results. For patients being treated with fulvestrant, Estradiol ultrasensitive should be ordered. ??This test is performed by LC/MS and is not expected to show cross reactivity to fulvestrant. Blood Venous blood specimen / Unknown Venipuncture / Unknown 07/16/2024 9:02 AM EST 07/16/2024 9:02 AM EST Donell [facility] LAB BLOOD ORDERABLES Fin al Result Performing Organization Address [facility]/ZIP Co de Phone Number [facility] [address] [place] [address], * Complete blood count (07/16/2024 9:02 AM EST) [facility] WBC 8.3 4.8 - 10.8 K/mcL LAB HEMETOLOGY METHOD 07/16/2024 10:32 AM EST [facility] RBC 4.40 3.80 - 4.80 M/mcL LAB HEMETOLOGY METHOD 07/16/2024 10:32 AM EST [facility] Hemoglobin 13.2 11.5 - 16.0 g/dL LAB HEMETOLOGY METHOD 07/16/2024 10:32 AM [facility] Hematocrit 39.3 35.0 - 47.0 % LAB HEMETOLOGY METHOD 07/16/2024 10:32 AM [facility] MCV 89.5 79.0 - 98.0 FL LAB HEMETOLOGY METHOD 07/16/2024 10:32 AM [facility] MCH 30.1 27.0 - 32.0 pcg LAB HEMETOLOGY METHOD 07/16/2024 10:32 AM [facility] MCHC 33.6 32.0 - 37.0 g/dL LAB HEMETOLOGY METHOD 07/16/2024 10:32 AM [facility] RDW 13.4 11.0 - 15.0 % LAB HEMETOLOGY METHOD 07/16/2024 10:32 AM [facility] Platelets 225 130 - 400 K/mcL LAB HEMETOLOGY METHOD 07/16/2024 10:32 AM [facility] MPV 10.1 7.0 - 11.0 FL LAB HEMETOLOGY METHOD 07/16/2024 10:32 AM [facility] NRBC 0.0 <1.0 % LAB HEMETOLOGY METHOD 07/16/2024 10:32 AM [facility] NRBC Absolute 0.00 <0.10 K/mcL LAB HEMETOLOGY METHOD 07/16/2024 10:32 AM [facility] Blood Venous blood specimen / Unknown Venipuncture / Unknown 07/16/2024 9:02 AM EST 07/16/2024 9:02 AM EST us Donell VITALE LAB BLOOD ORDERABLES Fin al Result [facility] [address] [place] [address], * Homocysteine, total (07/16/2024 9:02 AM EST) Pathologist [facility] Homocysteine 8.0 3.2 - 10.7 mcmol/L LAB CHEMISTRY METHOD 07/16/2024 1:32 PM EST [facility] Blood Venous blood specimen / Unknown Venipuncture / Unknown 07/16/2024 9:02 AM EST 07/16/2024 9:02 AM EST [facility] [email or web address] LAB BLOOD ORDERABLES Fin al Result Performing Organization Address [facility]/ZIP Co de Phone Number [facility] [address] [place] [address], * Luteinizing hormone (07/16/2024 9:02 AM EST) [facility] Luteinizing Hormone 2.2 See Comment mIU/mL LAB CHEMISTRY METHOD 07/16/2024 1:32 PM EST [facility] Blood Venous blood specimen / Unknown Venipuncture / Unknown 07/16/2024 9:02 AM EST 07/16/2024 9:02 AM EST Narrative [facility] - 07/16/2024 1:32 PM EST LH REFERENCE RANGES (MIU/ML) FEMALES NORMALLY MENSTRUATING: FOLLICULAR PHASE ??1.9 - 12.8 MIDCYCLE PEAK ?22.8 - 76.1 LUTEAL PHASE ?0.6 - 13.5 POSTMENOPAUSAL: ON HRT ?1.1 - ??52.4 UNTREATED ? 8.6 - ??61.8 Donell [employer] [place] LAB BLOOD ORDERABLES Fin al Result Performing Organization Address [facility]/ZIP Co de Phone Number [facility] [address] [place] [address], * Follicle stimulating hormone (07/16/2024 9:02 AM EST) [facility] Follicle Stimulating Hormone 6.0 See Comment mIU/mL LAB CHEMISTRY METHOD 07/16/2024 1:32 PM EST [facility] Comment: FSH REFERENCE RANGES (MIU/ML) FEMALES NORMALLY MENSTRUATING: FOLLICULAR PHASE ??2.3 - 12.6 MIDCYCLE PEAK ? 5.2 - 17.5 LUTEAL PHASE ?1.7 - ??9.5 POSTMENOPAUSAL: ON HRT ?5.9 - ??72.8 UNTREATED ?12.7 - 132.2 Blood Venous blood specimen / Unknown Venipuncture / Unknown 07/16/2024 9:02 AM EST 07/16/2024 9:02 AM EST [facility] [email or web address] [place] LAB BLOOD ORDERABLES Fin al Result Performing Organization Address [facility]/ZIP Co de Phone Number [facility] [address] [place] [address], [place] [phone] * Immunoglobulin IgA (07/16/2024 9:02 AM EST) [facility] IgA 298 61 - 348 mg/dL LAB CHEMISTRY METHOD 07/16/2024 1:32 PM EST [facility] Blood Venous blood specimen / Unknown Venipuncture / Unknown 07/16/2024 9:02 AM EST 07/16/2024 9:02 AM EST [facility] [employer] [place] LAB BLOOD ORDERABLES Fin al Result Performing Organization Address [facility]/ZIP Co de Phone Number [facility] [address] [place] [address], [place] [phone] * (ABNORMAL) Comprehensive metabolic panel (07/16/2024 9:02 AM EST) [facility] Sodium 133 133 - 145 mmol/L LAB CHEMISTRY METHOD 07/16/2024 1:32 PM [facility] Potassium 4.1 3.5 - 5.5 mmol/L LAB CHEMISTRY METHOD 07/16/2024 1:32 PM [facility] Chloride 102 96 - 110 mmol/L LAB CHEMISTRY METHOD 07/16/2024 1:32 PM [facility] CO2 26 21 - 32 mmol/L LAB CHEMISTRY METHOD 07/16/2024 1:32 PM [facility] Anion Gap 5 3 - 11 LAB CHEMISTRY METHOD 07/16/2024 1:32 PM [facility] Glucose 99 70 - 100 mg/dL LAB CHEMISTRY METHOD 07/16/2024 1:32 PM [facility] BUN 13 5 - 25 mg/dL LAB CHEMISTRY METHOD 07/16/2024 1:32 PM [facility] Creatinine 1.04 0.50 - 1.10 mg/dL LAB CHEMISTRY METHOD 07/16/2024 1:32 PM [facility] eGFR 68 >=60 mL/min/1. 73m2 LAB CHEMISTRY METHOD 07/16/2024 1:32 PM [facility] Comment:Calculation based on the??Chronic Kidney Disease Epidemiology Collaboration (CKD-EPI) equation refit??without adjustment for race. BUN/Creatinine Ratio 12.5 LAB CHEMISTRY METHOD 07/16/2024 1:32 PM [facility] Calcium 9.8 8.5 - 10.5 mg/dL LAB CHEMISTRY METHOD 07/16/2024 1:32 PM [facility] AST (SGOT) 72(H) 10 - 42 unit/L LAB CHEMISTRY METHOD 07/16/2024 1:32 PM [facility] ALT (SGPT) 109(H) 10 - 60 unit/L LAB CHEMISTRY METHOD 07/16/2024 1:32 PM [facility] Alkaline Phosphatase 46 42 - 121 unit/L LAB CHEMISTRY METHOD 07/16/2024 1:32 PM EST [facility] Total Protein 8.3(H) 6.0 - 8.0 g/dL LAB CHEMISTRY METHOD 07/16/2024 1:32 PM EST [facility] Albumin 4.4 3.2 - 5.0 g/dL LAB CHEMISTRY METHOD 07/16/2024 1:32 PM [facility] Total Bilirubin 0.8 0.0 - 1.4 mg/dL LAB CHEMISTRY METHOD 07/16/2024 1:32 PM EST [facility] Blood Venous blood specimen / Unknown Venipuncture / Unknown 07/16/2024 9:02 AM EST 07/16/2024 9:02 AM EST Donell [facility] LAB BLOOD ORDERABLES Fin al Result [facility] [address] [place] [address], * Mammography (09/19/2023) Mammogram abstract [facility] Anatomical Region Laterality Modality Other Historical Provider HEALTH MAINTENANCE Final Result from Last 3 Months or Most Recently Relevant to Health Maintenance Insurance Care Teams Radiological Health Specialist Relationship Specialty Start Date End Date Anderson Noble PA PCP - General Internal Medicine 02/16/20
== END 2024-09-25 15:33 | disposition home or self-care (01) ==
LOC: HO.MAMMO 15:32
PROVIDERS: PCP Physician Assistant Medical; Visit Provider Physician Assistant Medical
DX: Z12.31 Encounter for screening mammogram for malignant neoplasm of breast (principal)
CPT/HCPCS: 77063; 77067

== ENCOUNTER → 2024-09-25 16:30 | Outpatient (BNV) | payer BC, SELFPAY | PROVIDERS: PCP Physician Assistant Medical; Visit Provider Internal Medicine | DX: Z12.31 Encounter for screening mammogram for malignant neoplasm of breast (principal) | CPT/HCPCS: 77063; 77067 ==

== ENCOUNTER 2024-11-11 11:33 | Outpatient (REF) | payer BC, SELFPAY ==
[2024-11-11 16:58] LABS: Bacterial Vaginosis PCR POSITIVE (Negative); Candida Group PCR NOT DETECTED (Not Detect); Candida glab krusei PCR NOT DETECTED (Not Detect); Trichomonas vaginalis PCR NOT DETECTED (Not Detect)
[2024-11-11 17:30] LABS: CT PCR NOT DETECTED (Not Detect.); NG PCR NOT DETECTED (Not Detect.)
== END 2024-11-11 11:34 | disposition home or self-care (01) ==
LOC: HO.LNP 11:33
PROVIDERS: PCP Physician Assistant Medical; Visit Provider Advanced Practice Midwife
DX: Z01.419 Encounter for gynecological examination (general) (routine) without abnormal findings (principal); Z20.2 Contact with and (suspected) exposure to infections with a predominantly sexual mode of transmission; Z97.5 Presence of (intrauterine) contraceptive device
CPT/HCPCS: 81515; 87491; 87591

== ENCOUNTER 2024-11-11 11:33 | Outpatient (AMB) | payer BC, SELFPAY ==
--- NOTE | 2024-11-11 11:34 | A.OFFVIS_ITS ---
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 Doing well with no quality assurance coach concerns. Has a Mirena IUD for AUB starting to have bleeding episodes. Mirena was inserted in 2019. Currently is sexually active. She denies vaginal itching or irritation. She tries to eat healthy and stays active with exercise. Denies family history of breast, ovarian or colon cancer. Last pap smear 2023, negative. Prior ascus negative HPV. Mammogram: 2024. 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 Sexual orientation: Straight/Heterosexual Gender identity: Female Female Reproductive History Menstrual Age of Menarche: 12 control method: progestin IUCD (Mirena 12/2019) Total pregnancies: 3 Full term: 3 Number of Living Children: 3 Date of last pap smear: 11/09/23 (neg pap and hpv) History of abnormal pap smear: Yes (07/11 ascus 09/10 ascus) Date of Mammogram: 09/25/24 (Birad 1) Review of Systems Const All systems reviewed & are unremarkable except as noted in HPI and below Reports as per HPI Eyes Reports no additional complaints ENT Reports no additional complaints Card Reports no additional complaints Resp Reports no additional complaints GI Reports as per HPI and Reports no additional complaints Reports as per HPI Musc Reports no additional complaints Skin/Breast Reports as per HPI Neuro Reports no additional complaints Psych Reports no additional complaints Endo Reports no additional complaints Alberto/Lymph Reports no additional complaints Aller/Immun Reports no additional complaints Physical Exam Vital Signs: Last Vital Signs BP 120/78 11/11/24 11:36 BMI result Body Mass Index 36.2 Const General: cooperative, healthy appearing, no acute distress, well developed and alert Orientation/consciousness: patient oriented x3 HEENT Head: Yes normal to inspection Eyes General: appearance normal, both eyes and all related structures Neck Neck: Yes normal visual inspection Thyroid: Thyroid normal Chest Chest palpation & inspection: normal inspection of the chest and other (no puckering, dimpling, peau de orange, retraction, discharge, masses) Breast/axilla inspection: normal inspection of the breasts Breast/axilla palpation: normal palpation of the breasts Resp Effort & Inspection: normal respiratory effort GI Inspection: Yes normal to inspection and Yes scar Palpation (GI): Soft to palpation Rectal Exam - Female: deferred General: Yes bladder normal to palpation External Female Exam: normal external appearance and normal appearance of the urethra Speculum Exam - Vagina: normal appearance of the vagina, normal palpation, normal vaginal discharge and vaginal bleeding Speculum Exam - Cervix: normal appearance of the cervix, normal palpation and Other cervical findings present (IUD strings not seen, blood clot at os) Bimanual exam- vagina & uterus: normal bimanual exam, normal palpation, uterine size normal, bladder normal to palpation, normal palpation and non-tender Bimanual Exam- Adnexa, other: no masses OB/external & speculum: vaginal bleeding Skin General skin exam: no rashes or lesions noted Rashes: no rashes Neuro General: patient oriented x3 Cognition (Neuro): normal cognition Extrem General: Yes normal to inspection Psych Attitude: cooperative Thought process: Normal thought process present Assessment & Plan Assessment & Plan (1) Encounter for well woman exam with routine gynecological exam: Code(s): Z01.419 - Encounter for gynecological examination (general) (routine) without abnormal findings Category: Medical Plan Discussed: Current recommendations for pap smears per ASCCP guidelines. Breast awareness and periodic breast exams. Mammogram yearly. Maintain a healthy lifestyle including a well balanced diet and routine exercise. Schedule Mirena exchange, GC chlamydia and BV panel obtained. Pre-procedure counseling completed advised to eat drink and take 3 ibuprofen 1 hour before her procedure appointment time. Patient verbalizes understanding and agrees to the plan of care. She was given opportunity to ask questions and all questions were answered to the best of my ability. RTO in one year for annual quality assurance coach examination. This note is constructed using voice recognition software. While every effort has been made to ensure accuracy, dental hygiene professor errors may have been included. Orders: Orders CT NG by PCR Today Z20.2 - Contact with and (suspected) exposure to infections with a predominantly sexual mode of transmission Bacterial Vaginosis Panel Today Z20.2 - Contact with and (suspected) exposure to infections with a predominantly sexual mode of transmission Coding Level of Care Code Est Pt Prev Care 40-64y(33183) Diagnoses Encounter for well woman exam with routine gynecological exam Z01.419
[2024-11-11 11:36] VITALS: BP 120/78; BMI 36.2
--- OUTSIDE RECORDS SUMMARY | 2024-11-11 13:16 | XMS_ITS | Clinical Summary ---
Author Organization [facility] Address [address] [place] [address] Phone Care Team Providers Care Instructional Technology Specialist Name Role Phone Anderson Noble Primary Care Provider [phone] Medications buPROPion XL (WELLBUTRIN XL) 300 mg 24 hr tablet TAKE 1 TABLET BY MOUTH EVERY DAY IN THE MORNING 90 tablet 1 07/28/2024 Active Encounters Date Type Department Care Team Description 09/03/2024 Telephone Adult Medicine [address] [phone] Anderson Noble PA Sore Throat from Last 3 Months Surgical History Surgery [...] 01/31/2017, Additional history exists Breast Cancer Screening 09/25/2026 09/25/2024, 09/18 DTaP,Tdap,and Td Vaccines (2 - Td or [...] Procedure Name Priority Date/Time Associated Diagnosis Comments COMPREHENSIVE METABOLIC PANEL Routine 10/07/2024 8:03 AM EDT Transaminitis EXTERNAL MAMMOGRAM REPORT 09/25/2024 LIPID PANEL WITH REFLEX TO DIRECT LDL Routine 07/16/2024 9:02 AM EST Exogenous obesity Irritable bowel syndrome with constipation Fatigue from Last 3 Months or Most Recently Relevant to Health Maintenance Results * (ABNORMAL) Comprehensive metabolic panel (10/07/2024 8:03 AM EDT) Sodium 135 133 - 145 mmol/L LAB CHEMISTRY METHOD 10/07/2024 11:10 AM [facility] Potassium 4.2 3.5 - 5.5 mmol/L LAB CHEMISTRY METHOD 10/07/2024 11:10 AM [facility] Chloride 103 96 - 110 mmol/L LAB CHEMISTRY METHOD 10/07/2024 11:10 AM [facility] CO2 24 21 - 32 mmol/L LAB CHEMISTRY METHOD 10/07/2024 11:10 AM [facility] Anion Gap 8 3 - 11 LAB CHEMISTRY METHOD 10/07/2024 11:10 AM [facility] Glucose 114(H) 70 - 100 mg/dL LAB CHEMISTRY METHOD 10/07/2024 11:10 AM [facility] BUN 13 5 - 25 mg/dL LAB CHEMISTRY METHOD 10/07/2024 11:10 AM [facility] Creatinine 1.21(H) 0.50 - 1.10 mg/dL LAB CHEMISTRY METHOD 10/07/2024 11:10 AM [facility] eGFR 57(L) >=60 mL/min/1. 73m2 LAB CHEMISTRY METHOD 10/07/2024 11:10 AM [facility] Comment:Calculation based on the Chronic Kidney Disease Epidemiology Collaboration (CKD-EPI) equation refit without adjustment for race. BUN/Creatinine Ratio 10.7 LAB CHEMISTRY METHOD 10/07/2024 11:10 AM [facility] Calcium 9.2 8.5 - 10.5 mg/dL LAB CHEMISTRY METHOD 10/07/2024 11:10 AM [facility] AST (SGOT) 36 10 - 42 unit/L LAB CHEMISTRY METHOD 10/07/2024 11:10 AM [facility] ALT (SGPT) 76(H) 10 - 60 unit/L LAB CHEMISTRY METHOD 10/07/2024 11:10 AM [facility] Alkaline Phosphatase 54 42 - 121 unit/L LAB CHEMISTRY METHOD 10/07/2024 11:10 AM [facility] Total Protein 8.0 6.0 - 8.0 g/dL LAB CHEMISTRY METHOD 10/07/2024 11:10 AM [facility] Albumin 4.0 3.2 - 5.0 g/dL LAB CHEMISTRY METHOD 10/07/2024 11:10 AM [facility] Total Bilirubin 0.7 0.0 - 1.4 mg/dL LAB CHEMISTRY METHOD 10/07/2024 11:10 AM [facility] Blood Venous blood specimen / Unknown Venipuncture / Unknown 10/07/2024 8:03 AM EDT 10/07/2024 8:03 AM EDT us [facility] LAB BLOOD ORDERABLES Fin al Result [facility] [address] [place] [address], * External Mammogram Report (09/25/2024) Anatomical Region Laterality Modality Mammography us Provider [facility] IM[facility] BI PROCEDURES Final Result * (ABNORMAL) Lipid panel with reflex to direct LDL (07/16/2024 9:02 AM EST) Cholesterol 206(H) 0 - 200 mg/dL LAB CHEMISTRY METHOD 07/16/2024 1:32 PM EST [facility] Triglycerides 226(H) 0 - 150 mg/dL LAB CHEMISTRY METHOD 07/16/2024 1:32 PM EST [facility] HDL 43 >=40 mg/dL LAB CHEMISTRY METHOD 07/16/2024 1:32 PM EST [facility] LDL Calculated 118(H) 0 - 100 mg/dL LAB CHEMISTRY METHOD 07/16/2024 1:32 PM EST [facility] VLDL Cholesterol [place] 45.2 mg/dL LAB CHEMISTRY METHOD 07/16/2024 1:32 PM EST [facility] Non HDL Chol. (LDL+VLDL) 163(H) <145 mg/dL LAB CHEMISTRY METHOD 07/16/2024 1:32 PM EST [facility] Chol/HDL Ratio 4.8(H) 0.0 - 4.4 LAB CHEMISTRY METHOD 07/16/2024 1:32 PM EST [facility] Blood Venous blood specimen / Unknown Venipuncture / Unknown 07/16/2024 9:02 AM EST 07/16/2024 9:02 AM EST [facility] BLOOD ORDERABLES Fin al Result [facility] [address] [place] [address], from Last 3 Months or Most Recently Relevant to Health Maintenance Insurance [facility] Care Teams Instructional Technology Specialist Relationship Specialty Start Date End Date Anderson Noble PA PCP - General Internal Medicine 02/16/20
== END 2024-11-11 12:19 | disposition home or self-care (01) ==
LOC: HO.HWS 11:33
PROVIDERS: PCP Physician Assistant Medical; Visit Provider Advanced Practice Midwife
DX: Z01.419 Encounter for gynecological examination (general) (routine) without abnormal findings (principal)
CPT/HCPCS: 99396; 99459

== ENCOUNTER 2024-11-11 11:59 | Outpatient (REF) | payer BC, SELFPAY | END 2024-11-11 12:00 | disposition home or self-care (01) | LOC: HO.LAB 11:59 | PROVIDERS: Visit Provider Advanced Practice Midwife | DX: Z13.89 Encounter for screening for other disorder (principal) ==

== ENCOUNTER 2024-12-16 09:54 | Outpatient (AMB) | payer BC, SELFPAY ==
--- NOTE | 2024-12-16 09:55 | MHC.OFFVIS ---
Vital Signs 12/16/24 09:57 Height 5 ft 6 in Weight 190 lb BMI 30.7 BP 124/78 Blood Pressure Location Rt brachial Position Sitting Intake Visit Reasons: Mirena removal and insertion Intake Note: upt negative Information Interpreted: non-clinical & clinical [place] Hand: Orchard Hand Present (Dyana) Accompanied by: Self / Same As Patient Allergies No Known Allergies (No Known Allergies*) Allergy (Verified 12/16/24 09:58) Medication List - Last Reconciled 12/16/24 by Celia Freire LPN bupropion HCl SR mg PO cetirizine (Zyrtec) 10 mg PO DAILY escitalopram oxalate 20 mg PO DAILY levonorgestrel 0 device vaginal ONCE Is last menstrual period known: Yes (11/02/24) Last menstrual period: 11/02/24 Patient : No Do you need a note to return to daycare/school/sports/work: No HPI Comments Details: Patient is here today for IUD exchange. History of Mirena use for AUB. UPT is negative. Recent GC chlamydia were negative. 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 Sexual orientation: Straight/Heterosexual Gender identity: Female Female Reproductive History Menstrual Age of Menarche: 12 Date of last menstrual period: 11/02/24 control method: progestin IUCD Total pregnancies: 3 Number of Living Children: 3 Review of Systems Const All systems reviewed & are unremarkable except as noted in HPI and below Physical Exam Vital Signs: Last Vital Signs BP 124/78 12/16/24 09:57 BMI result Body Mass Index 30.7 Const General: cooperative, healthy appearing and no acute distress Orientation/consciousness: patient oriented x3 GI Inspection: Yes normal to inspection Palpation (GI): Soft to palpation and Other GI palpation findings present (Nontender) Rectal Exam - Female: visual inspection normal General: Yes bladder normal to palpation External Female Exam: normal appearance of the urethra Speculum Exam - Vagina: normal appearance of the vagina, normal palpation and normal vaginal discharge Speculum Exam - Cervix: normal appearance of the cervix, normal palpation and Other cervical findings present (IUD strings missing) Bimanual exam- vagina & uterus: normal bimanual exam, normal palpation, uterine size normal, bladder normal to palpation, normal palpation, uterine shape normal and non-tender Bimanual Exam- Adnexa, other: normal adnexae Neuro General: patient oriented x3 Office Procedures IUD Insert/Removal Details Details: The patient consented for Mirena IUD insertion Urine test was done in the office and was negative; All the contraindications were excluded. The procedure was explained in detail to patient , at the end patient signed the informed consent obtained. A no touch technique was used throughout the procedure. A speculum was placed into vagina and cervix was cleaned with betadine). A tenaculum was placed. A plastic sound was advanced through the external and internal os , there was resistance at 5 cm. The sound was then withdrawn after multiple attempts. The procedure was aborted at this point because of inability to enter the endometrial cavity. Tenaculum site hemostatic. All instruments removed from vagina. Patient tolerated the procedure well. NO complications were noted. Patient was instructed to call for fever over 100.4, significant pain unrelieved by Motrin, IUD expulsion, heavy bleeding, or abnormal discharge. Instructed the patient to schedule a Follow up appointment in 4 to 6 weeks to discuss different options of treatment. This note was generated with a voice recognition program. Some errors may have been overlooked during the review of this note. Sometimes these errors may affect the content or meaning of a given sentence. 34704-LSZ Insertion Procedure code (CPT) selection complete IUD Insert/Removal Details Details: The patient presents today for a IUD removal due to 5 year use and requires exchange. ?She is planning a Mirena replacement for AUB. She was counseled regarding the removal of her IUD. She was consented for the procedure along with anticipatory guidance for the removal and the consents form was signed. She desires to proceed with the IUD removal. IUD Removal Procedure: The patient was placed in the dorsal lithotomy position. A speculum was inserted vaginally and the cervix and strings were not visualized at the os. A Gayathri forcep and then IUD extractor were utilized, removing the IUD device intact. The uterine cavity was sounded to 5, unable to insert IUD due to constriction or blockage, Dr. Knox was called to assist an attempt to insert the IUD but was not able to complete the procedure. See Dr. Knox is procedure notes. Minimal bleeding was observed. All of the equipment was removed. The patient tolerated the procedure well and left the office in good condition. IUD Removal Information: You may have light bleeding for several days, tapering off to a brown or pink color. Mild cramping after removal is common. If not allergic, you may take an over the counter mild analgesic for the discomfort, such as Tylenol or Advil (use dosing and frequency per the manufacturers recommendations). Call the office if you experience: fever (over 100.4), flu like symptoms, abdominal or pelvic pain, foul smelling discharge or heavy bleeding. If not planning for a future , another form of control is recommended. Use of condoms for prevention of is also recommended, if indicated. Nothing in the vagina for 7 days advised. The patient expressed understanding and agreement with the plan of care. All of her questions and concerns were addressed to the best of my ability. This note is constructed using voice recognition software. ?While every effort has been made to ensure accuracy, manager integration errors may have been included. ? 92108-NAL Removal Procedure code (CPT) selection complete Office Meds Mirena 21 mcg/24 hr (up to 8 years) 52 mg intrauterine device Performing Provider: Joe Knox MD Performing Location: [facility] [place] [facility] Documented (not given) by: Joe Knox MD on 12/16/24 12:44 Dose Route Admin Location Dispensed Lot Number Expiration Date FORMERLY NAMED [facility] [employer] 1 device intrauterine ea Total Dispensed Waste n/a n/a Results AMB Test Urine AMB Test Urine Negative Last Edit by Celia Freire LPN on 12/16/24 10:08 Results Reviewed Results Reviewed: Laboratory Last Values Tst Clinic Negative 12/16/24 10:07 Assessment & Plan Assessment & Plan (1) Abnormal uterine bleeding (AUB): Code(s): N93.9 - Abnormal uterine and vaginal bleeding, unspecified Category: Medical Plan: Plan pelvic ultrasound to evaluate the uterine cavity for patency. Ultrasound ordered patient advised to follow up for ultrasound results. The patient expressed understanding and agreement with the plan of care. All of her questions and concerns were addressed to the best of my ability. (2) Encounter for IUD removal: Code(s): Z30.432 - Encounter for removal of intrauterine contraceptive device Plan: Procedure completed. See procedure notes. (3) Unsuccessful IUD insertion: Code(s): Z53.8 - Procedure and treatment not carried out for other reasons Plan IUD removal completed. Unsuccessful IUD reinsertion. Follow up pending pelvic ultrasound. Condoms and abstinence for now for protection and we will have to discuss her options if unable to or unwilling to have a another Mirena IUD. The patient expressed understanding and agreement with the plan of care. All of her questions and concerns were addressed to the best of my ability. This note is constructed using voice recognition software. While every effort has been made to ensure accuracy, manager integration errors may have been included. Orders: Orders AMB IUD Insertion/Removal - Practice Supplied Today Joe Knox MD Z53.8 - Procedure and treatment not carried out for other reasons AMB HCG Urine Test Today Caitlin Conner CNM Z32.02 - Encounter for test, result negative US pelvic and transvaginal Today Caitlin Conner CNM N93.9 - Abnormal uterine and vaginal bleeding, unspecified Medications: New Mirena (levonorgestrel) 1 device intrauterine ONCE 1 ea 0RF failed attempt IUD insertion NS Joe Knox MD Z53.8 - Procedure and treatment not carried out for other reasons Coding Level of Care Code Procedure Only Diagnoses Abnormal uterine bleeding (AUB) N93.9 Encounter for IUD removal Z30.432 Unsuccessful IUD insertion Z53.8 CPT Codes Details - CPT: 73196-JZW Insertion ([id number]) Details - CPT: 30316-KPL Removal ([id number]) Comment Unsuccessful IUD insertion by Dr. Knox
[2024-12-16 09:57] VITALS: BP 124/78; BMI 30.7
--- OUTSIDE RECORDS SUMMARY | 2024-12-16 10:32 | XMS_ITS | Clinical Summary ---
Author Organization [facility] Address [address] [place] [address] Phone Care Team Providers Care Customs Director Name Role Phone Anderson Noble Primary Care Provider [phone] Medications buPROPion XL (WELLBUTRIN XL) 300 mg 24 hr tablet TAKE 1 TABLET BY MOUTH EVERY DAY IN THE MORNING 90 tablet 1 07/28/2024 Active Surgical History Surgery Date Site/Laterality Comments CHOLECYSTECTOMY [...] Health Maintenance Due Date Last Done Comments Cervical Cancer Screening: Pap Smear 2001 COVID-19 Vaccine (3 - Moderna risk series) 10/02/2020 09/04/2020, 08/07/2020 HIV Screening 04/29/2022 Hepatitis C Screening 04/29/2022 Social Influencers of Health Screening 04/29/2022 Depression Screening 05/21/2024 Influenza Vaccine (#1) 2025 , 01/30/2018, 01/31/2017, Additional history exists Breast Cancer [...] on patient's age to complete this topic Pneumococcal Vaccine: Pediatrics (0 to 5 Years) and At-Risk Patients (6 to 49 Years) Aged Out No longer eligible based on patient's age to complete this topic RSV Immunization Patients Under 20 months Aged Out No longer eligible based on patient's age to complete this topic Varicella Vaccines Aged Out No longer eligible based on patient's age to complete this topic Procedures Procedure Name Priority Date/Time Associated Diagnosis Comments EXTERNAL CLINICAL LAB 11/11/2024 COMPREHENSIVE METABOLIC PANEL Routine 10/07/2024 8:03 AM EDT Transaminitis EXTERNAL MAMMOGRAM REPORT 09/25/2024 LIPID PANEL WITH REFLEX TO DIRECT LDL Routine 07/16/2024 9:02 AM EST Exogenous obesity Irritable bowel syndrome with constipation Fatigue from Last 3 Months or Most Recently Relevant to Health Maintenance Results * External clinical lab (11/11/2024) us Provider [facility] LAB BLOOD ORDERABLES Fin al Result * (ABNORMAL) Comprehensive metabolic panel (10/07/2024 8:03 AM EDT) Sodium 135 133 - 145 mmol/L LAB CHEMISTRY METHOD 10/07/2024 11:10 AM [facility] Potassium 4.2 3.5 - 5.5 mmol/L LAB CHEMISTRY METHOD 10/07/2024 11:10 AM [facility] Chloride 103 96 - 110 mmol/L LAB CHEMISTRY METHOD 10/07/2024 11:10 AM [facility] CO2 24 21 - 32 mmol/L LAB CHEMISTRY METHOD 10/07/2024 11:10 AM [facility] Anion Gap 8 3 - 11 LAB CHEMISTRY METHOD 10/07/2024 11:10 AM [facility] Glucose 114(H) 70 - 100 mg/dL LAB CHEMISTRY METHOD 10/07/2024 11:10 AM [facility] BUN 13 5 - 25 mg/dL LAB CHEMISTRY METHOD 10/07/2024 11:10 AM [facility] Creatinine 1.21(H) 0.50 - 1.10 mg/dL LAB CHEMISTRY METHOD 10/07/2024 11:10 AM [facility] eGFR 57(L) >=60 mL/min/1. 73m2 LAB CHEMISTRY METHOD 10/07/2024 11:10 AM [facility] Comment:Calculation based on the Chronic Kidney Disease Epidemiology Collaboration (CKD-EPI) equation refit without adjustment for race. BUN/Creatinine Ratio 10.7 LAB CHEMISTRY METHOD 10/07/2024 11:10 AM [facility] Calcium 9.2 8.5 - 10.5 mg/dL LAB CHEMISTRY METHOD 10/07/2024 11:10 AM [facility] AST (SGOT) 36 10 - 42 unit/L LAB CHEMISTRY METHOD 10/07/2024 11:10 AM [facility] ALT (SGPT) 76(H) 10 - 60 unit/L LAB CHEMISTRY METHOD 10/07/2024 11:10 AM [facility] Alkaline Phosphatase 54 42 - 121 unit/L LAB CHEMISTRY METHOD 10/07/2024 11:10 AM [facility] Total Protein 8.0 6.0 - 8.0 g/dL LAB CHEMISTRY METHOD 10/07/2024 11:10 AM [facility] Albumin 4.0 3.2 - 5.0 g/dL LAB CHEMISTRY METHOD 10/07/2024 11:10 AM [facility] Total Bilirubin 0.7 0.0 - 1.4 mg/dL LAB CHEMISTRY METHOD 10/07/2024 11:10 AM [facility] Blood Venous blood specimen / Unknown Venipuncture / Unknown 10/07/2024 8:03 AM EDT 10/07/2024 8:03 AM EDT us [facility] LAB BLOOD ORDERABLES Fin al Result [facility] [address] [place] [address], * External Mammogram Report (09/25/2024) Anatomical Region Laterality Modality Mammography us Provider [facility] IMG BI PROCEDURES Final Result * (ABNORMAL) Lipid panel with reflex to direct LDL (07/16/2024 9:02 AM EST) Cholesterol 206(H) 0 - 200 mg/dL LAB CHEMISTRY METHOD 07/16/2024 1:32 PM EST [facility] Triglycerides 226(H) 0 - 150 mg/dL LAB CHEMISTRY METHOD 07/16/2024 1:32 PM EST [facility] HDL 43 >=40 mg/dL LAB CHEMISTRY METHOD 07/16/2024 1:32 PM EST [facility] LDL Calculated 118(H) 0 - 100 mg/dL LAB CHEMISTRY METHOD 07/16/2024 1:32 PM EST [facility] VLDL Cholesterol [place] 45.2 mg/dL LAB CHEMISTRY METHOD 07/16/2024 1:32 PM EST [facility] Non HDL Chol. (LDL+VLDL) 163(H) <145 mg/dL LAB CHEMISTRY METHOD 07/16/2024 1:32 PM EST [facility] Chol/HDL Ratio 4.8(H) 0.0 - 4.4 LAB CHEMISTRY METHOD 07/16/2024 1:32 PM EST [facility] Blood Venous blood specimen / Unknown Venipuncture / Unknown 07/16/2024 9:02 AM EST 07/16/2024 9:02 AM EST [facility] BLOOD ORDERABLES Fin al Result [facility] [address] [place] [address], from Last 3 Months or Most Recently Relevant to Health Maintenance Insurance [facility] Care Teams Customs Director Relationship Specialty Start Date End Date Anderson Noble PA PCP - General Internal Medicine 02/16/20
--- OUTSIDE RECORDS SUMMARY | 2024-12-16 10:32 | XMS_ITS ---
Author Name [facility] Organization Unknown Care Team Organization Name Specialty Phone Email Start Date End Da te [facility] 01/25/2023 [facility] 09/25/2022
== END 2024-12-16 11:42 | disposition home or self-care (01) ==
LOC: HO.HWS 09:55
PROVIDERS: PCP Physician Assistant Medical; Visit Provider Advanced Practice Midwife
DX: Z30.432 Encounter for removal of intrauterine contraceptive device (principal); N93.9 Abnormal uterine and vaginal bleeding, unspecified; Z32.02 Encounter for pregnancy test, result negative
CPT/HCPCS: 58301

== ENCOUNTER → 2024-12-16 09:54 | Outpatient (BNVA) | payer BC, SELFPAY | PROVIDERS: PCP Physician Assistant Medical; Visit Provider Advanced Practice Midwife | DX: Z30.432 Encounter for removal of intrauterine contraceptive device (principal); Z32.02 Encounter for pregnancy test, result negative | CPT/HCPCS: 58301; 81025 ==

== ENCOUNTER 2024-12-16 13:21 | Outpatient (REF) | payer BC, SELFPAY ==
--- NOTE | ~2024-12-16 | US_ITS ---
CLINICAL HISTORY: N93.9 - Abnormal uterine and vaginal bleeding, unspecified --- Additional Notes or Special Instructions: unable to reinsert IUD due to short endometrial cavity- 5cm, history of Transabdominal and transvaginal pelvic ultrasound Comparison: None Findings: Uterus 11.3 x 4.3 x 5.6 cm. Endometrium 3 mm. 1.5 cm right fundal fibroid. No significant free fluid. Right ovary 1.7 x 0.9 x 1.5 cm. Left ovary 2.7 x 1.0 x 2.6 cm. No significant focal abnormality. Impression: Small uterine fibroid, otherwise unremarkable This document has been electronically signed by: Benedicto Gonzalez MD on 12/16/2024 21:49:48
== END 2024-12-16 13:22 | disposition home or self-care (01) ==
LOC: HO.US 13:21
PROVIDERS: PCP Physician Assistant Medical; Visit Provider Advanced Practice Midwife
DX: Z32.02 Encounter for pregnancy test, result negative (principal); N93.9 Abnormal uterine and vaginal bleeding, unspecified; Z53.8 Procedure and treatment not carried out for other reasons
CPT/HCPCS: 76830; 76856

== ENCOUNTER → 2024-12-16 13:23 | Outpatient (BNV) | payer BC, SELFPAY | PROVIDERS: PCP Physician Assistant Medical; Visit Provider Radiology Diagnostic Radiology | DX: D25.9 Leiomyoma of uterus, unspecified (principal) | CPT/HCPCS: 76830; 76856 ==

== ENCOUNTER 2024-12-18 09:26 | Outpatient (AMB) | payer BC, SELFPAY ==
--- NOTE | 2024-12-18 09:33 | MHC.OFFVIS ---
Vital Signs 12/18/24 09:34 Height 5 ft 6 in Weight 190 lb BMI 30.7 BP 126/78 Blood Pressure Location Lt brachial Position Sitting Intake Visit Reasons: Mirena insertion/Paracervical Block Intake Note: second attempt in office to place Mirena Automatic Transmission Mechanic Required: No Information Interpreted: non-clinical & clinical Sanitation Worker Cleaning Machinery: Sanitation Worker Cleaning Machinery Present (Dyana) Accompanied by: Self / Same As Patient Allergies No Known Allergies (No Known Allergies*) Allergy (Verified 12/18/24 09:36) Medication List - Last Reconciled 12/18/24 by Celia Freire LPN bupropion HCl SR mg PO cetirizine (Zyrtec) 10 mg PO DAILY escitalopram oxalate 20 mg PO DAILY Do you need a note to return to daycare/school/sports/work: No HPI Comments Details: Patient is here today for Mirena insertion, history of AUB. Had IUD removed yesterday with unsuccessful reinsertion attempt, most likely due to cervical spasm. Plan paracervical block if indicated. Fibroids noted on ultrasound yesterday. 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 Sexual orientation: Straight/Heterosexual Gender identity: Female Female Reproductive History Menstrual Age of Menarche: 12 Review of Systems Const All systems reviewed & are unremarkable except as noted in HPI and below Physical Exam Vital Signs: Last Vital Signs BP 126/78 12/18/24 09:34 BMI result Body Mass Index 30.7 Const General: cooperative, healthy appearing and no acute distress Orientation/consciousness: patient oriented x3 GI Inspection: Yes normal to inspection Palpation (GI): Soft to palpation and Other GI palpation findings present (Nontender) Rectal Exam - Female: visual inspection normal General: Yes bladder normal to palpation External Female Exam: normal appearance of the urethra Speculum Exam - Vagina: normal appearance of the vagina, normal palpation, normal vaginal discharge and vaginal bleeding (Small amount dark) Speculum Exam - Cervix: normal appearance of the cervix and normal palpation Bimanual exam- vagina & uterus: normal bimanual exam, normal palpation, uterine size normal, bladder normal to palpation, normal palpation, uterine shape normal and non-tender Bimanual Exam- Adnexa, other: normal adnexae OB/external & speculum: vaginal bleeding (Small amount dark) Neuro General: patient oriented x3 Office Procedures IUD Insert/Removal Details Details: The patient is here today for a Mirena IUD insertion for AUB. She was counseled on the side effects including: menstrual cycle changes, pain, infection, bleeding, or expulsion. Risks of injury to the vagina, cervix, uterus, tubes, ovaries, bowel, bladder, and any adjacent tissue, resulting in nerve damage, scarring, and pain. Risks complications for the procedure that may require other test including ultrasounds, Xray, CT or MRI scan, surgery, anesthesia, blood transfusion. A urine test was completed and was negative. She was consented for the IUD insertion and has signed the consent form. All questions were answered. IUD Insertion: The patient was placed in the dorsal lithotomy position and a sterile speculum was inserted. The procedure was completed under aseptic technique. The cervix and vagina were cleansed with a Betadine solution x 3 swabs. A single toothed tenaculum was applied to the cervix for stabilization, and the uterus was sounded to 7.5 cm. The device was inserted and released with a gentle motion. Bleeding from the tenaculum sites and the procedure were minimal. The strings were trimmed to 3cm. All of the equipment was removed and the bimanual was normal, no tip was palpable at the cervical os. The patient tolerated the procedure well and left the office in good condition. Post IUD Insertion Care: There may be some post insertion bleeding for several days that is usually light and can turn to a light brown or pink in color. Mild cramping may occur. Nothing in the vagina including: tampons, douching or intimacy for several days. You may take an over the counter mild analgesia like Tylenol or Advil (if no allergies), per the manufacturers recommendations on dosing and frequency. Follow the directions completely. Call the office if any: fever (over 100.4), flu like symptoms, abdominal pain, worsening cramping not resolved with over the counter medications, foul smelling vaginal odor, signs of infected appearing discharge, or heavy bleeding. Use a condom for a back up method if indicated for 7 days. Always use a condom for STI prevention; IUD's are not protective against STD's. Return to the office in 4-6 weeks for IUD recheck. This note is constructed using voice recognition software. While every effort has been made to ensure accuracy, telehealth coordinator errors may have been included. [id number] Insertion Procedure code (CPT) selection complete Results AMB Test Urine AMB Test Urine Negative Last Edit by Celia Freire LPN on 12/18/24 09:52 Results Reviewed Results Reviewed: Laboratory Last Values Tst Clinic Negative 12/18/24 09:50 Assessment & Plan Assessment & Plan (1) Encounter for IUD insertion: Code(s): Z30.430 - Encounter for insertion of intrauterine contraceptive device Plan See procedure notes. This note is constructed using voice recognition software. While every effort has been made to ensure accuracy, telehealth coordinator errors may have been included. Orders: Orders AMB HCG Urine Test Today Z32.02 - Encounter for test, result negative Coding Level of Care Code Procedure Only Diagnoses Encounter for IUD insertion Z30.430 CPT Codes Details - CPT: 19655-URX Insertion ([id number])
[2024-12-18 09:34] VITALS: BP 126/78; BMI 30.7
--- OUTSIDE RECORDS SUMMARY | 2024-12-18 09:46 | XMS_ITS | Clinical Summary ---
Author Organization [facility] Address [address] [place] [address] Phone Care Team Providers Care Inspection Machine Tender Name Role Phone Anderson Noble Primary Care Provider [phone] Medications buPROPion XL (WELLBUTRIN XL) 300 mg [...] mmol/L LAB CHEMISTRY METHOD 10/07/2024 11:10 AM [facility] Potassium 4.2 3.5 - 5.5 mmol/L LAB CHEMISTRY METHOD 10/07/2024 11:10 AM [facility] Chloride 103 96 - 110 mmol/L LAB CHEMISTRY METHOD 10/07/2024 11:10 AM [facility] CO2 24 21 - 32 mmol/L LAB CHEMISTRY METHOD 10/07/2024 11:10 AM [facility] Anion Gap 8 3 - 11 LAB CHEMISTRY METHOD 10/07/2024 11:10 AM [facility] Glucose 114(H) 70 - 100 mg/dL LAB CHEMISTRY METHOD 10/07/2024 11:10 AM [facility] BUN 13 5 - 25 mg/dL LAB CHEMISTRY METHOD 10/07/2024 11:10 AM [facility] Creatinine 1.21(H) 0.50 - 1.10 mg/dL LAB CHEMISTRY METHOD 10/07/2024 11:10 AM [facility] eGFR 57(L) >=60 mL/min/1. 73m2 LAB CHEMISTRY METHOD 10/07/2024 11:10 AM [facility] Comment:Calculation based on the Chronic Kidney Disease Epidemiology Collaboration (CKD-EPI) equation refit without adjustment for race. BUN/Creatinine Ratio 10.7 LAB CHEMISTRY METHOD 10/07/2024 11:10 AM [facility] Calcium 9.2 8.5 - 10.5 mg/dL LAB CHEMISTRY METHOD 10/07/2024 11:10 AM [facility] AST (SGOT) 36 10 - 42 unit/L LAB CHEMISTRY METHOD 10/07/2024 11:10 AM [facility] ALT (SGPT) 76(H) 10 - 60 unit/L LAB CHEMISTRY METHOD 10/07/2024 11:10 AM [facility] Alkaline Phosphatase 54 42 - 121 unit/L LAB CHEMISTRY METHOD 10/07/2024 11:10 AM [facility] Total Protein 8.0 6.0 - 8.0 g/dL LAB CHEMISTRY METHOD 10/07/2024 11:10 AM [facility] Albumin 4.0 3.2 - 5.0 g/dL LAB CHEMISTRY METHOD 10/07/2024 11:10 AM [facility] Total Bilirubin 0.7 0.0 - 1.4 mg/dL LAB CHEMISTRY METHOD 10/07/2024 11:10 AM [facility] Blood Venous blood specimen / Unknown Venipuncture / Unknown 10/07/2024 8:03 AM EDT 10/07/2024 8:03 AM EDT us [facility] LAB BLOOD ORDERABLES Fin al Result [facility] [address] [place] [address], * External Mammogram Report (09/25/2024) Anatomical Region Laterality Modality Mammography us Provider [facility] IMG BI PROCEDURES Final Result * (ABNORMAL) Lipid panel with reflex to direct LDL (07/16/2024 9:02 AM EST) Cholesterol 206(H) 0 - 200 mg/dL LAB CHEMISTRY METHOD 07/16/2024 1:32 PM EST [facility] Triglycerides 226(H) 0 - 150 mg/dL LAB CHEMISTRY METHOD 07/16/2024 1:32 PM EST [facility] HDL 43 >=40 mg/dL LAB CHEMISTRY METHOD 07/16/2024 1:32 PM EST [facility] LDL Calculated 118(H) 0 - 100 mg/dL LAB CHEMISTRY METHOD 07/16/2024 1:32 PM EST [facility] VLDL Cholesterol [place] 45.2 mg/dL LAB CHEMISTRY METHOD 07/16/2024 1:32 PM EST [facility] Non HDL Chol. (LDL+VLDL) 163(H) <145 mg/dL LAB CHEMISTRY METHOD 07/16/2024 1:32 PM EST [facility] Chol/HDL Ratio 4.8(H) 0.0 - 4.4 LAB CHEMISTRY METHOD 07/16/2024 1:32 PM EST [facility] Blood Venous blood specimen / Unknown Venipuncture / Unknown 07/16/2024 9:02 AM EST 07/16/2024 9:02 AM EST [facility] BLOOD ORDERABLES Fin al Result [facility] [address] [place] [address], from Last 3 Months or Most Recently Relevant to Health Maintenance Insurance [facility] Care Teams Inspection Machine Tender Relationship Specialty Start Date End Date Anderson Noble PA PCP - General Internal Medicine 02/16/20
== END 2024-12-18 10:18 | disposition home or self-care (01) ==
LOC: HO.HWS 09:27
PROVIDERS: PCP Physician Assistant Medical; Visit Provider Advanced Practice Midwife
DX: Z30.430 Encounter for insertion of intrauterine contraceptive device (principal); Z32.02 Encounter for pregnancy test, result negative
CPT/HCPCS: 58300

== ENCOUNTER → 2024-12-18 09:26 | Outpatient (BNVA) | payer BC, SELFPAY | PROVIDERS: PCP Physician Assistant Medical; Visit Provider Advanced Practice Midwife | DX: Z30.430 Encounter for insertion of intrauterine contraceptive device (principal); N93.9 Abnormal uterine and vaginal bleeding, unspecified; Z32.02 Encounter for pregnancy test, result negative | CPT/HCPCS: 58300; 81025 ==

== ENCOUNTER 2024-12-30 09:45 | Outpatient (AMB) | payer BC, SELFPAY ==
--- NOTE | 2024-12-30 09:46 | MHC.OFFVIS ---
Intake Visit Reasons: TV Ultrasound results Accounts Receivable Collector: Accounts Receivable Collector Present Allergies No Known Allergies (No Known Allergies*) Allergy (Verified 12/18/24 09:36) Is last menstrual period known: Yes HPI Comments Details: Tele Health Visit Total time I personally spent on visit and management today: 15 minutes. Time spent included review of pertinent office notes in the electronic health record; review of laboratory and imaging results; review of personal family medical history; discussing diagnosis and plan of care with the patient; documenting the encounter in the EMR. Patient presents to discuss: Follow up pelvic ultrasound. History of recent IUD insertion, history of AUB. 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: Straight/Heterosexual Gender identity: Female Female Reproductive History Menstrual Age of Menarche: 12 Review of Systems Const All systems reviewed & are unremarkable except as noted in HPI and below Endo Reports no additional complaints Physical Exam Const General: cooperative, healthy appearing and no acute distress Psych Appearance: well kempt Attitude: cooperative Thought process: Normal thought process present Telehealth Telehealth Telehealth Platform: [employer] Location of provider rendering services: practice address Location of patient: address on file Patient Identification confirmed using: Name, : Yes Telehealth method: video Patient verbally consented to treatment: Yes Patient verbally consented to billing insurance company: Yes Patient informed of any privacy concerns related to visit: Yes Results Reviewed Results Reviewed: [address] [address] Ultrasound Report Signed Patient: Yanna Bueno MR#: [id number] : 1980 Acct:[id number] Age/Sex: 44 / F ADM Date: 12/16/24 Loc: HO. Attending Dr: Caitlin Conner CNM Ordering Physician: Caitlin Conner CNM Date of Service: 12/16/24 Procedure(s): US pelvic and transvaginal Accession Number(s): [id number] cc: Caitlin Conner CNM; Anderson Noble~ CLINICAL HISTORY: N93.9 - Abnormal uterine and vaginal bleeding, unspecified --- Additional Notes or Special Instructions: unable to reinsert IUD due to short endometrial cavity- 5cm, history of Transabdominal and transvaginal pelvic ultrasound Comparison: None Findings: Uterus 11.3 x 4.3 x 5.6 cm. Endometrium 3 mm. 1.5 cm right fundal fibroid. No significant free fluid. Right ovary 1.7 x 0.9 x 1.5 cm. Left ovary 2.7 x 1.0 x 2.6 cm. No significant focal abnormality. 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 Plan Counseled re: Leiomyoma: common pelvic neoplasm. Differential diagnosis-may include but not limited to- leiomyosarcoma which is a rare uterine sarcoma 3-7/100,000, difficult to distinguish from fibroids on ultrasound from uterine sarcoma's. Unlikely any single test will have a highly positive predictive value. Hysterectomy is not recommended for sole purpose of excluding malignant neoplasm. Consult for surgical exploration, medical treatment, other treatments, verses expectant management, pros and cons, risks and benefits. Expectant management follow up in 6 months, then yearly for stability. Patient prefers to proceed with expectant management. Referral to MD if indicated for level of care if indicated Report any AUB, pelvic pressure, bloating, or pain. Plan tele visit follow up. Keep appointment for IUD check. The patient expressed understanding and agreement with the plan of care. All of her questions and concerns were addressed to the best of my ability. This note is constructed using voice recognition software. While every effort has been made to ensure accuracy, academic coordinator errors may have been included. Orders: Orders US pelvic and transvaginal 06/29/25 D21.9 - Benign neoplasm of connective and other soft tissue, unspecified Coding Level of Care Code Tele Est Pt Level 3 (70007) Diagnoses Fibroid D21.9
--- OUTSIDE RECORDS SUMMARY | 2024-12-30 10:28 | XMS_ITS | Clinical Summary ---
Author Organization [facility] Address [address] [place] [address] Phone Care Team Providers Care Schedule Announcer Name Role Phone Anderson Noble Primary Care Provider [phone] Medications buPROPion XL (WELLBUTRIN XL) 300 mg 24 hr tablet TAKE 1 TABLET BY MOUTH EVERY DAY IN THE MORNING 90 tablet 1 07/28/2024 Active Encounters Date Type Department Care Team Description 12/26/2024 Telephone Adult Medicine [address] [phone] Makenna Trimble MA Referral from Last 3 [...] Name Priority Date/Time Associated Diagnosis Comments EXTERNAL ULTRASOUND REPORT 12/16/2024 EXTERNAL CLINICAL LAB 11/11/2024 COMPREHENSIVE METABOLIC PANEL Routine 10/07/2024 8:03 AM EDT Transaminitis EXTERNAL MAMMOGRAM REPORT 09/25/2024 LIPID PANEL WITH REFLEX TO DIRECT LDL Routine 07/16/2024 9:02 AM EST Exogenous obesity Irritable bowel syndrome with constipation Fatigue from Last 3 Months or Most Recently Relevant to Health Maintenance Results * External Ultrasound Report (12/16/2024) Anatomical Region Laterality Modality Ultrasound us Provider [facility] US PROCEDURES Final Result * External clinical lab (11/11/2024) us Provider [facility] LAB BLOOD ORDERABLES Fin al Result * (ABNORMAL) Comprehensive metabolic panel (10/07/2024 8:03 AM EDT) Sodium 135 133 - 145 mmol/L LAB CHEMISTRY METHOD 10/07/2024 11:10 AM [facility] Potassium 4.2 3.5 - 5.5 mmol/L LAB CHEMISTRY METHOD 10/07/2024 11:10 AM [facility] Chloride 103 96 - 110 mmol/L LAB CHEMISTRY METHOD 10/07/2024 11:10 AM [facility] CO2 24 21 - 32 mmol/L LAB CHEMISTRY METHOD 10/07/2024 11:10 AM [facility] Anion Gap 8 3 - 11 LAB CHEMISTRY METHOD 10/07/2024 11:10 AM [facility] Glucose 114(H) 70 - 100 mg/dL LAB CHEMISTRY METHOD 10/07/2024 11:10 AM [facility] BUN 13 5 - 25 mg/dL LAB CHEMISTRY METHOD 10/07/2024 11:10 AM [facility] Creatinine 1.21(H) 0.50 - 1.10 mg/dL LAB CHEMISTRY METHOD 10/07/2024 11:10 AM [facility] eGFR 57(L) >=60 mL/min/1. 73m2 LAB CHEMISTRY METHOD 10/07/2024 11:10 AM [facility] Comment:Calculation based on the Chronic Kidney Disease Epidemiology Collaboration (CKD-EPI) equation refit without adjustment for race. BUN/Creatinine Ratio 10.7 LAB CHEMISTRY METHOD 10/07/2024 11:10 AM [facility] Calcium 9.2 8.5 - 10.5 mg/dL LAB CHEMISTRY METHOD 10/07/2024 11:10 AM [facility] AST (SGOT) 36 10 - 42 unit/L LAB CHEMISTRY METHOD 10/07/2024 11:10 AM [facility] ALT (SGPT) 76(H) 10 - 60 unit/L LAB CHEMISTRY METHOD 10/07/2024 11:10 AM [facility] Alkaline Phosphatase 54 42 - 121 unit/L LAB CHEMISTRY METHOD 10/07/2024 11:10 AM [facility] Total Protein 8.0 6.0 - 8.0 g/dL LAB CHEMISTRY METHOD 10/07/2024 11:10 AM [facility] Albumin 4.0 3.2 - 5.0 g/dL LAB CHEMISTRY METHOD 10/07/2024 11:10 AM [facility] Total Bilirubin 0.7 0.0 - 1.4 mg/dL LAB CHEMISTRY METHOD 10/07/2024 11:10 AM [facility] Blood Venous blood specimen / Unknown Venipuncture / Unknown 10/07/2024 8:03 AM EDT 10/07/2024 8:03 AM EDT us [facility] BLOOD ORDERABLES Fin al Result [facility] [address] [place] [address], [place] [phone] * External Mammogram Report (09/25/2024) Anatomical Region Laterality Modality Mammography Provider [facility] BI PROCEDURES Final Result * (ABNORMAL) Lipid panel with reflex to direct LDL (07/16/2024 9:02 AM EST) Cholesterol 206(H) 0 - 200 mg/dL LAB CHEMISTRY METHOD 07/16/2024 1:32 PM EST [facility] Triglycerides 226(H) 0 - 150 mg/dL LAB CHEMISTRY METHOD 07/16/2024 1:32 PM EST [facility] HDL 43 >=40 mg/dL LAB CHEMISTRY METHOD 07/16/2024 1:32 PM EST [facility] LDL Calculated 118(H) 0 - 100 mg/dL LAB CHEMISTRY METHOD 07/16/2024 1:32 PM [facility] VLDL Cholesterol [place] 45.2 mg/dL LAB CHEMISTRY METHOD 07/16/2024 1:32 PM EST [facility] Non HDL Chol. (LDL+VLDL) 163(H) <145 mg/dL LAB CHEMISTRY METHOD 07/16/2024 1:32 PM EST [facility] Chol/HDL Ratio 4.8(H) 0.0 - 4.4 LAB CHEMISTRY METHOD 07/16/2024 1:32 PM [facility] Blood Venous blood specimen / Unknown Venipuncture / Unknown 07/16/2024 9:02 AM EST 07/16/2024 9:02 AM EST [facility] BLOOD ORDERABLES Fin al Result [facility] [address] [place] [address], from Last 3 Months or Most Recently Relevant to Health Maintenance Insurance [facility] Care Teams Schedule Announcer Relationship Specialty Start Date End Date Anderson Noble PA PCP - General Internal Medicine 02/16/20
== END 2024-12-30 10:20 | disposition home or self-care (01) ==
LOC: HO.HWS 09:45
PROVIDERS: PCP Physician Assistant Medical; Visit Provider Advanced Practice Midwife
DX: D21.9 Benign neoplasm of connective and other soft tissue, unspecified (principal)
CPT/HCPCS: 99213

== ENCOUNTER 2025-02-03 14:06 | Outpatient (AMB) | payer BC, SELFPAY ==
[2025-02-03 14:11] VITALS: BP 122/72; BMI 30.7
--- NOTE | 2025-02-03 14:11 | MHC.OFFVIS ---
Vital Signs 02/03/25 14:11 Height 5 ft 6 in Weight 190 lb BMI 30.7 BP 122/72 Blood Pressure Location Lt brachial Position Sitting Intake Visit Reasons: 6 wks IUD follow up/?pap smear Intake Note: bled heavily after insertion 01/16/25, but has resolved. Metal Washing Machine Operator Required: No Allergies No Known Allergies (No Known Allergies*) Allergy (Verified 02/03/25 14:16) Medication List - Last Reconciled 02/03/25 by Naye Vogt LPN bupropion HCl SR mg PO cetirizine (Zyrtec) 10 mg PO DAILY escitalopram oxalate 20 mg PO DAILY Is last menstrual period known: Yes Last menstrual period: 01/12/25 Post menopausal: No Patient : No Do you need a note to return to daycare/school/sports/work: No HPI Comments Details: Patient is here today for status post IUD checkup. History of heavy menses after insertion no cycle since. She does not have any concerns today. 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 Sexual orientation: Straight/Heterosexual Gender identity: Female Female Reproductive History Menstrual Age of Menarche: 12 Date of last menstrual period: 01/12/25 control method: progestin IUCD Total pregnancies: 3 Full term: 3 Date of last pap smear: 11/09/23 History of abnormal pap smear: Yes (ASCUS neg HPV, also in 2020) History of STI: No Date of Mammogram: 09/25/24 History of abnormal mammogram: No Review of Systems Const All systems reviewed & are unremarkable except as noted in HPI and below Physical Exam Vital Signs: Last Vital Signs BP 122/72 02/03/25 14:11 BMI result Body Mass Index 30.7 Const General: cooperative, healthy appearing and no acute distress Orientation/consciousness: patient oriented x3 GI Inspection: Yes normal to inspection Palpation (GI): Soft to palpation and Other GI palpation findings present (Nontender) Rectal Exam - Female: visual inspection normal General: Yes bladder normal to palpation External Female Exam: normal appearance of the urethra Speculum Exam - Vagina: normal appearance of the vagina, normal palpation and normal vaginal discharge Speculum Exam - Cervix: normal appearance of the cervix, normal palpation and Other cervical findings present (No tip or strings at the os, unable to tease down strings with a Cytobrush) Bimanual exam- vagina & uterus: normal bimanual exam, normal palpation, uterine size normal, bladder normal to palpation, normal palpation, uterine shape normal and non-tender Bimanual Exam- Adnexa, other: normal adnexae Neuro General: patient oriented x3 Assessment & Plan Assessment & Plan (1) IUD strings lost: Code(s): T83.32XA - Displacement of intrauterine contraceptive device, initial encounter Category: Medical Qualifiers: Encounter type: initial encounter Qualified Code(s): T83.32XA - Displacement of intrauterine contraceptive device, initial encounter Plan Plan urgent pelvic ultrasound to check IUD position. Advised to call if there is any concerns or heavy bleeding episodes. Follow up pending ultrasound findings. The patient expressed understanding and agreement with the plan of care. All of her questions and concerns were addressed to the best of my ability. This note is constructed using voice recognition software. While every effort has been made to ensure accuracy, registered client associate errors may have been included. Orders: Orders US pelvic and transvaginal Today T83.32XA - Displacement of intrauterine contraceptive device, initial encounter Coding Level of Care Code Est Pt Level 3 (44233) Diagnoses Intrauterine contraceptive device threads lost, initial encounter T83.32XA Encounter type: initial encounter
--- OUTSIDE RECORDS SUMMARY | 2025-02-03 17:56 | XMS_ITS | Clinical Summary ---
Author Organization [facility] Address [address] [place] [address] Phone Care Team Providers Care Waiter/Waitress Name Role Phone Anderson Noble Primary Care Provider [phone] Medications buPROPion XL (WELLBUTRIN XL) 300 mg 24 hr tablet TAKE 1 TABLET BY MOUTH EVERY DAY IN THE MORNING 90 tablet 1 5 Active escitalopram (LEXAPRO) 20 mg tablet Take 1 tablet (20 mg total) by mouth 1 (one) time each day. 90 tablet 5 Active escitalopram (LEXAPRO) 20 mg tablet Take 1 tablet (20 mg total) by mouth 1 (one) time each day. 01/17/20 25 Discontinu ed(Reorder ) Encounters Date Type Department Care Team Description 12/26/2024 Telephone Adult [address] [phone] Makenna Trimble MA from Last 3 Months Surgical History Surgery [...] 02/12/2024 3:28 PM EDT Plan of Treatment Upcoming Encounters Date Type Department Care Team (Late st Contact Info) Description 02/23/2025 3:30 PM EDT Office Visit Adult Medicine [address] [phone] Karlee Merchant PA [address] [place] [address] Health Maintenance Due Date Last Done Comments [...] ULTRASOUND REPORT 12/16/2024 EXTERNAL CLINICAL LAB 11/11/2024 EXTERNAL MAMMOGRAM REPORT 09/25/2024 LIPID PANEL WITH [...] LAB BLOOD ORDERABLES Fin al Result * External Mammogram Report (09/25/2024) Anatomical Region Laterality Modality Mammography us Provider [facility] IM[facility] BI PROCEDURES Final Result * (ABNORMAL) Lipid panel with reflex to direct LDL (07/16/2024 9:02 AM EST) Cholesterol 206(H) 0 - 200 mg/dL LAB CHEMISTRY METHOD 07/16/2024 1:32 PM EST [facility] Triglycerides 226(H) 0 - 150 mg/dL LAB CHEMISTRY METHOD 07/16/2024 1:32 PM EST [facility] HDL 43 >=40 mg/dL LAB CHEMISTRY METHOD 07/16/2024 1:32 PM EST [facility] LDL Calculated 118(H) 0 - 100 mg/dL LAB CHEMISTRY METHOD 07/16/2024 1:32 PM EST [facility] VLDL Cholesterol [place] 45.2 mg/dL LAB CHEMISTRY METHOD 07/16/2024 1:32 PM [facility] Non HDL Chol. (LDL+VLDL) 163(H) <145 mg/dL LAB CHEMISTRY METHOD 07/16/2024 1:32 PM [facility] Chol/HDL Ratio 4.8(H) 0.0 - 4.4 LAB CHEMISTRY METHOD 07/16/2024 1:32 PM [facility] Blood Venous blood specimen / Unknown Venipuncture / Unknown 07/16/2024 9:02 AM EST 07/16/2024 9:02 AM EST us [facility] BLOOD ORDERABLES Fin al Result [facility] [address] [place] [address], from Last 3 Months or Most Recently Relevant to Health Maintenance Insurance [facility] Care Teams Waiter/Waitress Relationship Specialty Start Date End Date Anderson Noble PA PCP - General Internal Medicine 02/16/20
== END 2025-02-03 15:02 | disposition home or self-care (01) ==
LOC: HO.HWS 14:06
PROVIDERS: PCP Physician Assistant Medical; Visit Provider Advanced Practice Midwife
DX: T83.32XA Displacement of intrauterine contraceptive device, initial encounter (principal)
CPT/HCPCS: 99213

== ENCOUNTER 2025-02-04 14:54 | Outpatient (REF) | payer BC, SELFPAY ==
--- NOTE | ~2025-02-04 | US_ITS ---
EXAMINATION: US PELVIS CLINICAL INFORMATION: Assess IUD placement. COMPARISON: 12/16/2024. TECHNIQUE: Ultrasound of the pelvis is performed using both transabdominal and transvaginal transducers along with Doppler. Transvaginal imaging is performed due to inadequate visualization transabdominally. FINDINGS: Uterus: The uterus is anteverted and measures 14.2 x 4.8 x 5.1 cm. Cervix is normal with small nabothian cysts. The double wall endometrial thickness is 3 mm. It is uniform. IUD is in place and appears appropriately situated. The uterus is smooth in contour and has normal myometrial echogenicity. There is a small 2.3 x 1.6 x 1.6 cm right sided mid uterine segment subserosal fibroid, (previously measuring 1.3 x 1.5 x 1.5 cm). Adnexa: Both ovaries are visualized. There is normal color flow to the adnexa. There is no ovarian torsion. There is no pelvic ascites or fluid collection. There are no adnexal masses. Right ovary measures 2.1 x 1.6 x 1.6 cm. Volume = 2.8 mL. Normal sonographic appearance. Left ovary measures 4.0 x 2.6 x 3.1 cm. Volume = 17.0 mL. There is a simple follicular cyst measuring 3.3 x 2.3 x 2.5 cm. US/US pelvic and transvaginal IMPRESSION: 1. Well situated IUD. Endometrial thickness is 3 mm, normal. 2. Far right lateral 2.3 cm uterine fibroid, slightly larger than previously measured. 3. There is a 3.3 cm left ovarian simple cyst. Ovaries otherwise normal in sonographic appearance. Electronically signed by: Howard Montiel MD 02/04/2025 03:40 PM EDT
--- OUTSIDE RECORDS SUMMARY | 2025-02-04 18:27 | XMS_ITS | Clinical Summary ---
Author Organization [facility] Address [address] [place] [address] Phone Care Team Providers Care Banbury Mill Operator Name Role Phone Anderson Noble Primary Care Provider [phone] [phone] Medications buPROPion XL (WELLBUTRIN XL) 300 mg [...] Department Care Team Description 12/26/2024 Telephone Adult [address] [phone] Makenna Trimble MA from Last 3 Months [...] 3:30 PM EDT Office Visit Adult Medicine [address] [phone] Karlee Merchant PA [address] [place] [address] Health Maintenance Due Date Last Done Comments [...] LAB CHEMISTRY METHOD 07/16/2024 1:32 PM EST [facility] Triglycerides 226(H) 0 - 150 mg/dL LAB CHEMISTRY METHOD 07/16/2024 1:32 PM EST [facility] HDL 43 >=40 mg/dL LAB CHEMISTRY METHOD 07/16/2024 1:32 PM EST [facility] LDL Calculated 118(H) 0 - 100 mg/dL LAB CHEMISTRY METHOD 07/16/2024 1:32 PM EST [facility] VLDL Cholesterol [place] 45.2 mg/dL LAB CHEMISTRY METHOD 07/16/2024 1:32 PM [facility] Non HDL Chol. (LDL+VLDL) 163(H) <145 mg/dL LAB CHEMISTRY METHOD 07/16/2024 1:32 PM [facility] Chol/HDL Ratio 4.8(H) 0.0 - 4.4 LAB CHEMISTRY METHOD 07/16/2024 1:32 PM [facility] Blood Venous blood specimen / Unknown Venipuncture / Unknown 07/16/2024 9:02 AM EST 07/16/2024 9:02 AM EST us [facility] LAB BLOOD ORDERABLES Fin al Result [facility] [address] [place] [address], from Last 3 Months or Most Recently Relevant to Health Maintenance Insurance [facility] Care Teams Banbury Mill Operator Relationship Specialty Start Date End Date Anderson Noble PA PCP - General Internal Medicine 02/16/20
== END 2025-02-04 14:55 | disposition home or self-care (01) ==
LOC: HO.US 14:54
PROVIDERS: PCP Physician Assistant Medical; Visit Provider Advanced Practice Midwife
DX: T83.32XA Displacement of intrauterine contraceptive device, initial encounter (principal)
CPT/HCPCS: 76830; 76856

== ENCOUNTER → 2025-02-04 14:55 | Outpatient (BNV) | payer BC, SELFPAY | PROVIDERS: PCP Physician Assistant Medical; Visit Provider Radiology Diagnostic Radiology | DX: D25.9 Leiomyoma of uterus, unspecified (principal) | CPT/HCPCS: 76830; 76856 ==

== ENCOUNTER 2025-02-05 09:57 | Outpatient (AMB) | payer BC, SELFPAY ==
--- NOTE | 2025-02-05 10:08 | MHC.OFFVIS ---
Intake Visit Reasons: ultrasound follow up Director Of Knowledge Management: Director Of Knowledge Management Present Accompanied by: Self / Same As Patient Allergies No Known Allergies (No Known Allergies*) Allergy (Verified 02/05/25 10:09) Is last menstrual period known: Yes HPI Comments Details: Patient was notified of test results this a.m., appointment was not canceled inappropriate amount of time patient was arrived for the visit. Ultrasound test results. History of missing IUD strings status post IUD check last visit. 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 Sexual orientation: Straight/Heterosexual Gender identity: Female Female Reproductive History Menstrual Age of Menarche: 12 Review of Systems Const All systems reviewed & are unremarkable except as noted in HPI and below Endo Reports no additional complaints Physical Exam Const General: cooperative, healthy appearing and no acute distress Psych Appearance: well kempt Attitude: cooperative Thought process: Normal thought process present Assessment & Plan Assessment & Plan (1) Fibroid: Comment: We will need 6mo follow up scheduled May 2025 Code(s): D21.9 - Benign neoplasm of connective and other soft tissue, unspecified Category: Medical Plan Counseled re: Leiomyoma: common pelvic neoplasm. Differential diagnosis-may include but not limited to- leiomyosarcoma which is a rare uterine sarcoma 3-7/100,000, difficult to distinguish from fibroids on ultrasound from uterine sarcoma's. Unlikely any single test will have a highly positive predictive value. Hysterectomy is not recommended for sole purpose of excluding malignant neoplasm. Consult for surgical exploration, medical treatment, other treatments, verses expectant management, pros and cons, risks and benefits. Expectant management follow up in 6 months, then yearly for stability. Patient prefers to proceed with expectant management. Referral to MD if indicated for level of care if indicated Report any PMB/AUB, pelvic pressure, bloating, or pain. Orders: Orders US pelvic and transvaginal 6 Months D21.9 - Benign neoplasm of connective and other soft tissue, unspecified Coding Level of Care Code Est Pt Level 2 (77568) Diagnoses Fibroid D21.9
--- OUTSIDE RECORDS SUMMARY | 2025-02-05 11:41 | XMS_ITS | Clinical Summary ---
Author Organization [facility] Address [address] [place] [address] Phone Care Team Providers Care Ventilated Rib Fitter Name Role Phone Anderson Noble Primary Care Provider [phone] Medications buPROPion XL (WELLBUTRIN XL) 300 mg [...] Department Care Team Description 12/26/2024 Telephone Adult [address] [phone] Makenna Trimble MA from Last 3 Months [...] 3:30 PM EDT Office Visit Adult Medicine [address] [phone] Karlee Merchant PA [address] [place] [address] Health Maintenance Due Date Last Done Comments [...] mg/dL LAB CHEMISTRY METHOD 07/16/2024 1:32 PM [facility] Non HDL Chol. (LDL+VLDL) 163(H) <145 mg/dL LAB CHEMISTRY METHOD 07/16/2024 1:32 PM [facility] Chol/HDL Ratio 4.8(H) 0.0 - 4.4 LAB CHEMISTRY METHOD 07/16/2024 1:32 PM [facility] Blood Venous blood specimen / Unknown Venipuncture / Unknown 07/16/2024 9:02 AM EST 07/16/2024 9:02 AM EST us [facility] BLOOD ORDERABLES Fin al Result [facility] [address] [place] [address], from Last 3 Months or Most Recently Relevant to Health Maintenance Insurance [facility] Care Teams Ventilated Rib Fitter Relationship Specialty Start Date End Date Anderson Noble PA PCP - General Internal Medicine 02/16/20
== END 2025-02-05 10:42 | disposition home or self-care (01) ==
LOC: HO.HWS 09:57
PROVIDERS: PCP Physician Assistant Medical; Visit Provider Advanced Practice Midwife
DX: D21.9 Benign neoplasm of connective and other soft tissue, unspecified (principal)
CPT/HCPCS: 99212